=== PATIENT | male | born 1945 | race Hispanic/Latino ===

== ENCOUNTER 2017-06-04 00:48 | Emergency (ER) | payer OTHER ==
[~2017-06-04 00:48] MED LIST: AMLO10TA2 PO; FINA5TAB41 PO; GLIP10TA9 PO; METO-391 PO; VALS320T15 PO
[2017-06-04] MEDS ORDERED: KETOROLAC TROMETHAMINE 30MG/ML ONE (01:19)
[2017-06-04] MEDS ORDERED: DIAZEPAM 5 MG TABLET ONE (01:20)
[2017-06-04] MEDS ORDERED: SODIUM CHLORIDE 0.9% 500ML 500 ML IV ONE (01:20)
[2017-06-04 01:25] LABS: BASOPHILS % (AUTO) 0.8 % (0.0-5.0); EOSINOPHILS % (AUTO) 6.3 % (0.0-8.0); HEMATOCRIT 43.3 % (42-54); LYMPHOCYTES % (AUTO) 11.7 % (21.0-51.0); MEAN CORPUSCULAR HEMOGLOBIN 28.8 pg (27.0-33.0); MEAN CORPUSCULAR HGB CONC 32.6 g/dL (32.0-36.0); MEAN CORPUSCULAR VOLUME 88.2 fL (79-99); NEUTROPHILS % (AUTO) 74.2 % (40.0-77.0); PLATELET COUNT (AUTO) 201 K/uL (130-400); RED BLOOD CELL COUNT(AUTO) 4.91 MIL/uL (4.50-6.20); RED CELL DISTRIBUTION WIDTH 13.8 % (11.0-15.5); WHITE BLOOD COUNT (AUTO) 11.9 K/uL (4.8-10.8)
[2017-06-04 01:36] LABS: CREATININE 1.5 mg/dL (0.5-1.5); INR 0.98 (0.85-1.15); PARTIAL THROMBOPLASTIN TIME 26.4 SEC (26.3-35.5); POTASSIUM 3.4 mmol/L (3.5-5.1); PROTHROMBIN TIME 10.3 SEC (9.6-11.6)
[2017-06-04 01:51] LABS: B-TYPE NATRIURETIC PEPTIDE 118 pg/mL (0-100)
== END 2017-06-04 03:51 | disposition home or self-care (01) ==
LOC: EDH 00:48
DX: J32.0 Chronic maxillary sinusitis (principal); R51 Headache; I10 Essential (primary) hypertension; E11.9 Type 2 diabetes mellitus without complications; Z88.0 Allergy status to penicillin; Z85.46 Personal history of malignant neoplasm of prostate; Z87.891 Personal history of nicotine dependence
CPT/HCPCS: 36415; 70450; 71045; 72125; 80048; 82550; 83880; 84484; 85025; 85610; 85730; 93005; 96374; 99285; J1885; J7040

== ENCOUNTER → 2018-04-17 | Outpatient (CLI) | payer OTHER ==
[~2018-04-17] MED LIST changes: -AMLO10TA2 PO; +AMLO10TA6 PO; -VALS320T15 PO; +VALS320T16 PO
== END | disposition home or self-care (01) ==
LOC: RAH 08:51
PROVIDERS: ATTEND Orthopaedic Surgery
DX: S83.242A Other tear of medial meniscus, current injury, left knee, initial encounter (principal); S83.282A Other tear of lateral meniscus, current injury, left knee, initial encounter; M25.462 Effusion, left knee; X58.XXXA Exposure to other specified factors, initial encounter; Y93.89 Activity, other specified; Y92.89 Other specified places as the place of occurrence of the external cause; Y99.8 Other external cause status
CPT/HCPCS: 73721

== ENCOUNTER 2018-07-14 19:38 | Emergency (ER) | payer OTHER ==
[~2018-07-14 19:38] MED LIST changes: -AMLO10TA6 PO; +AMLO10TA7 PO
[2018-07-14 20:22] LABS: BASOPHILS % (AUTO) 0.7 % (0.0-5.0); EOSINOPHILS % (AUTO) 5.7 % (0.0-8.0); HEMATOCRIT 39.6 % (42-54); LYMPHOCYTES % (AUTO) 11.6 % (21.0-51.0); MEAN CORPUSCULAR HEMOGLOBIN 28.8 pg (27.0-33.0); MEAN CORPUSCULAR VOLUME 87.3 fL (79-99); MONOCYTES % (AUTO) 7.3 % (3.0-13.0); NEUTROPHILS % (AUTO) 74.7 % (40.0-77.0); PLATELET COUNT (AUTO) 173 K/uL (130-400); RED BLOOD CELL COUNT(AUTO) 4.54 MIL/uL (4.50-6.20); RED CELL DISTRIBUTION WIDTH 14.4 % (11.0-15.5); WHITE BLOOD COUNT (AUTO) 11.8 K/uL (4.8-10.8)
[2018-07-14 20:36] LABS: POTASSIUM 3.1 mmol/L (3.5-5.1)
[2018-07-14 20:38] LABS: INR 0.94 (0.85-1.15); PARTIAL THROMBOPLASTIN TIME 26.8 SEC (26.3-35.5); PROTHROMBIN TIME 9.9 SEC (9.6-11.6)
[2018-07-14 20:41] LABS: ALBUMIN 3.3 g/dL (3.5-5.0); BILIRUBIN,TOTAL 0.6 mg/dL (0.2-1.0); CRP QUANTITATIVE 8.9 mg/L (0.00-9.0); TOTAL PROTEIN, SERUM 7.6 g/dL (6.0-8.3)
[2018-07-14 21:25] LABS: ERYTHROCYTE SEDIMENTATION RATE 23 MM/HR (0-20)
[2018-07-14] MEDS ORDERED: CLINDAMYCIN 600 MG/D5% WATER 50 ML IV ONE (21:55)
[2018-07-14] MEDS ORDERED: ONDANSETRON HCL 4 MG/2 ML VIAL ONE (21:55)
[2018-07-14] MEDS ORDERED: MORPHINE SULFATE 4 MG/1ML SYG ONE (21:56)
== END 2018-07-14 22:48 | disposition home or self-care (01) ==
LOC: EDH 19:38
DX: L03.116 Cellulitis of left lower limb (principal); E11.9 Type 2 diabetes mellitus without complications; M79.605 Pain in left leg; I10 Essential (primary) hypertension; Z88.0 Allergy status to penicillin; Z85.46 Personal history of malignant neoplasm of prostate; Z87.891 Personal history of nicotine dependence
CPT/HCPCS: 36415; 80053; 85025; 85610; 85651; 85730; 86140; 87040 ×3; 93005; 93970; 96365; 96375; 99284; J2270; J2405; J3490

== ENCOUNTER 2018-12-17 20:28 | Emergency (ER) | payer OTHER ==
[2018-12-17 21:12] LABS: BASOPHILS % (AUTO) 0.6 % (0.0-5.0); EOSINOPHILS % (AUTO) 6.7 % (0.0-8.0); HEMATOCRIT 40.9 % (42-54); LYMPHOCYTES % (AUTO) 19.1 % (21.0-51.0); MEAN CORPUSCULAR HEMOGLOBIN 29.5 pg (27.0-33.0); MEAN CORPUSCULAR HGB CONC 33.6 g/dL (32.0-36.0); MEAN CORPUSCULAR VOLUME 87.9 fL (79-99); MONOCYTES % (AUTO) 9.1 % (3.0-13.0); NEUTROPHILS % (AUTO) 64.5 % (40.0-77.0); NUCLEATED RED BLOOD CELLS 0.1 % (0.0-0.19); PLATELET COUNT (AUTO) 186 K/uL (130-400); RED BLOOD CELL COUNT(AUTO) 4.66 MIL/uL (4.50-6.20); RED CELL DISTRIBUTION WIDTH 14.9 % (11.0-15.5); WHITE BLOOD COUNT (AUTO) 8.7 K/uL (4.8-10.8)
[2018-12-17 21:24] LABS: CREATININE 1.9 mg/dL (0.5-1.5); POTASSIUM 3.2 mmol/L (3.5-5.1)
[2018-12-17 21:29] LABS: ALBUMIN 3.3 g/dL (3.5-5.0); BILIRUBIN,TOTAL 0.7 mg/dL (0.2-1.0); TOTAL PROTEIN, SERUM 7.3 g/dL (6.0-8.3)
[2018-12-17] MEDS ORDERED: POTASSIUM CHLORIDE 20 MEQ ERTAB PO ONE (22:25)
[2018-12-17] MEDS ORDERED: HYDRALAZINE HCL 20 MG/ML VIAL ONE (22:25)
[2018-12-18] MEDS ORDERED: FUROSEMIDE 10 MG/ML 2ML VIAL ONE ×2 (05:12→05:15)
== END 2018-12-18 05:28 | disposition home or self-care (01) ==
LOC: EDH 20:28
DX: R60.0 Localized edema (principal); T46.1X5A Adverse effect of calcium-channel blockers, initial encounter; R06.00 Dyspnea, unspecified; L40.9 Psoriasis, unspecified; E11.9 Type 2 diabetes mellitus without complications; I10 Essential (primary) hypertension; Z88.0 Allergy status to penicillin; Z87.891 Personal history of nicotine dependence; Y92.89 Other specified places as the place of occurrence of the external cause
CPT/HCPCS: 36415; 71045; 78580; 80053; 83880; 84484; 85025; 85378; 93005; 93970; 96374; 96375; 99285; A9540 ×2; J0360; J1940 ×2

== ENCOUNTER → 2019-02-09 | Outpatient (CLI) | payer OTHER | END | disposition home or self-care (01) | LOC: SHCH 13:12 | PROVIDERS: ATTEND Internal Medicine Cardiovascular Disease | DX: I11.9 Hypertensive heart disease without heart failure (principal); R06.00 Dyspnea, unspecified | CPT/HCPCS: 93306 ==

== ENCOUNTER → 2019-02-15 | Outpatient (CLI) | payer OTHER ==
[~2019-02-15] VITALS: Ht 172.7 cm; Wt 98.0 kg
[~2019-02-15] MED LIST changes: +REGADENOSON 0.4 MG/5 ML PF SYG IVP SCH
== END | disposition home or self-care (01) ==
LOC: SHCH 07:56
PROVIDERS: ATTEND Internal Medicine Cardiovascular Disease
DX: I12.9 Hypertensive chronic kidney disease with stage 1 through stage 4 chronic kidney disease, or unspecified chronic kidney disease (principal); E11.22 Type 2 diabetes mellitus with diabetic chronic kidney disease; N18.9 Chronic kidney disease, unspecified; R06.00 Dyspnea, unspecified; R53.83 Other fatigue; E78.00 Pure hypercholesterolemia, unspecified; Z86.73 Personal history of transient ischemic attack (TIA), and cerebral infarction without residual deficits; Z79.899 Other long term (current) drug therapy; Z82.49 Family history of ischemic heart disease and other diseases of the circulatory system
CPT/HCPCS: 78452; 93017; 96374; A9500 ×2; J2785

== ENCOUNTER 2019-04-30 16:57 | Emergency (ER) | payer OTHER ==
[~2019-04-30 16:57] MED LIST changes: +APRE1TAB2 PO; -REGADENOSON 0.4 MG/5 ML PF SYG IVP SCH
[2019-04-30 17:53] LABS: BASOPHILS % (AUTO) 0.7 % (0.0-5.0); EOSINOPHILS % (AUTO) 6.2 % (0.0-8.0); HEMATOCRIT 38.9 % (42-54); LYMPHOCYTES % (AUTO) 15.3 % (21.0-51.0); MEAN CORPUSCULAR HEMOGLOBIN 28.3 pg (27.0-33.0); MEAN CORPUSCULAR HGB CONC 32.4 g/dL (32.0-36.0); MEAN CORPUSCULAR VOLUME 87.2 fL (79-99); MONOCYTES % (AUTO) 8.6 % (3.0-13.0); NEUTROPHILS % (AUTO) 68.9 % (40.0-77.0); PLATELET COUNT (AUTO) 203 K/uL (130-400); RED BLOOD CELL COUNT(AUTO) 4.46 MIL/uL (4.50-6.20); RED CELL DISTRIBUTION WIDTH 15.7 % (11.0-15.5); WHITE BLOOD COUNT (AUTO) 9.9 K/uL (4.8-10.8)
[2019-04-30] MEDS ORDERED: HYDRALAZINE HCL 20 MG/ML VIAL ONE (18:14)
[2019-04-30 18:16] LABS: CREATININE 1.9 mg/dL (0.5-1.5); POTASSIUM 3.2 mmol/L (3.5-5.1)
[2019-04-30 18:18] LABS: ALBUMIN 3.2 g/dL (3.5-5.0); TOTAL PROTEIN, SERUM 7.8 g/dL (6.0-8.3)
[2019-04-30 18:39] LABS: APPEARANCE,URINE Clear (CLEAR); BILIRUBIN,URINE Negative (NEGATIVE); COLOR,URINE Yellow (YELLOW); GLUCOSE, URINE (UA) Negative (NEGATIVE); KETONES,URINE Negative (NEGATIVE); LEUKOCYTE ESTERASE ,URINE Negative (NEGATIVE); NITRATE,URINE Negative (NEGATIVE); OCCULT BLOOD,URINE Negative (NEGATIVE); PROTEIN,URINE POS 2+ mg/dL (NEGATIVE); UROBILINOGEN,URINE 0.2 mg/dL (0.2-1.0)
[2019-04-30 19:17] LABS: BACTERIA,URINE Rare /HPF (None Seen); RBC,URINE 0-1 /HPF (0-1); SQUAMOUS EPITHELIAL CELL,UR Rare /HPF (0-2); WBC,URINE 0-1 /HPF (0-1)
[2019-04-30] MEDS ORDERED: FUROSEMIDE 10 MG/ML 4ML VIAL ONE (20:00)
== END 2019-04-30 22:56 | disposition home or self-care (01) ==
LOC: EDH 16:57
DX: I12.9 Hypertensive chronic kidney disease with stage 1 through stage 4 chronic kidney disease, or unspecified chronic kidney disease (principal); E11.22 Type 2 diabetes mellitus with diabetic chronic kidney disease; N18.9 Chronic kidney disease, unspecified; L40.9 Psoriasis, unspecified; Z88.0 Allergy status to penicillin
CPT/HCPCS: 36415; 71046; 80053; 81001; 82550; 83880; 84484; 85025; 93005; 96374; 96375; 99285; J0360; J1940

== ENCOUNTER 2019-05-02 14:53 | Observation (INO) | payer OTHER ==
[2019-05-02] MEDS ORDERED: ONDANSETRON HCL 4 MG/2 ML VIAL ONE (15:38)
[2019-05-02] MEDS ORDERED: SODIUM CHLORIDE 0.9% 1000ML 1,000 ML IV ONE (15:38)
[2019-05-02 16:00] LABS: BASOPHILS % (AUTO) 0.3 % (0.0-5.0); CARBON DIOXIDE 25 mmol/L (21-32); CHLORIDE 98 mmol/L (101-111); CREATININE 2.4 mg/dL (0.5-1.5); EOSINOPHILS % (AUTO) 1.1 % (0.0-8.0); GLOMERULAR FILTR. RATE CALC 28 mL/min (>60); GLUCOSE,RANDOM 235 mg/dL (70-105); HEMATOCRIT 40.8 % (42-54); LYMPHOCYTES % (AUTO) 2.7 % (21.0-51.0); MEAN CORPUSCULAR HEMOGLOBIN 27.7 pg (27.0-33.0); MEAN CORPUSCULAR HGB CONC 32.1 g/dL (32.0-36.0); MEAN CORPUSCULAR VOLUME 86.3 fL (79-99); MONOCYTES % (AUTO) 6.2 % (3.0-13.0); NEUTROPHILS % (AUTO) 89.3 % (40.0-77.0); PLATELET COUNT (AUTO) 249 K/uL (130-400); POTASSIUM 3.6 mmol/L (3.5-5.1); RED BLOOD CELL COUNT(AUTO) 4.73 MIL/uL (4.50-6.20); RED CELL DISTRIBUTION WIDTH 15.8 % (11.0-15.5); SODIUM SERUM 136 mmol/L (136-145); UREA NITROGEN, BLOOD 36 mg/dL (7-18); WHITE BLOOD COUNT (AUTO) 16.1 K/uL (4.8-10.8)
[2019-05-02 16:07] LABS: INR 1.05 (0.85-1.15); PARTIAL THROMBOPLASTIN TIME 26.3 SEC (26.3-35.5)
[2019-05-02 16:11] LABS: ALANINE AMINOTRANSFERASE 29 U/L (12-78); ALBUMIN 3.2 g/dL (3.5-5.0); ASPARTATE AMINOTRANSFERASE 33 U/L (10-37); BILIRUBIN,TOTAL 1.4 mg/dL (0.2-1.0); CREATINE KINASE, TOTAL 150 U/L (21-232); MYOGLOBIN 230 ng/mL (10-92); TROPONIN I < 0.04 ng/mL (0.00-0.06)
[2019-05-02 21:42] LABS: APPEARANCE,URINE Turbid (CLEAR); BILIRUBIN,URINE Negative (NEGATIVE); COLOR,URINE Yellow (YELLOW); GLUCOSE, URINE (UA) Negative (NEGATIVE); KETONES,URINE Negative (NEGATIVE); LEUKOCYTE ESTERASE ,URINE Negative (NEGATIVE); NITRATE,URINE Negative (NEGATIVE); OCCULT BLOOD,URINE Negative (NEGATIVE); PROTEIN,URINE POS 2+ mg/dL (NEGATIVE); UROBILINOGEN,URINE 0.2 mg/dL (0.2-1.0)
[2019-05-02 21:59] LABS: BACTERIA,URINE Few /HPF (None Seen); MUCUS,URINE Few LPF (None Seen); SQUAMOUS EPITHELIAL CELL,UR 0-2 /HPF (0-2)
[2019-05-02] MEDS: SODIUM CHLORIDE 0.9% 1000ML 1,000 ML IV SCH (22:27)
[2019-05-02] MEDS: METRONIDAZOLE 500MG/100ML BAG 100 ML IV SCH (22:28)
[2019-05-02] MEDS ORDERED: GLUCAGON 1MG KIT 1 MG ML IM PRN (22:45)
[2019-05-02] MEDS ORDERED: DEXTROSE 50%-WATER 50 ML DISP.SYRIN IV PRN (22:45)
--- NOTE | 2019-05-02 23:55 | NUR ---
Nursing Note Pt has psoriasis over body. Dry, flaking, scaly skin with redness over patches of the body.
[2019-05-03] VITALS: BP 111/56
[2019-05-03] MEDS ORDERED: HUMLIS7525 SQ ×2 (00:32)
[2019-05-03] MEDS ORDERED: HYDR-4153 PO (00:32)
[2019-05-03] MEDS ORDERED: LEVO50 PO (00:32)
[2019-05-03] MEDS ORDERED: OLME1TAB42 PO (00:32)
[2019-05-03] MEDS ORDERED: NIFE60TA81 PO (00:32)
[2019-05-03] MEDS ORDERED: ROSU5TAB12 PO (00:32)
[2019-05-03 04:00] VITALS: BP 113/55
[2019-05-03] MEDS: METRONIDAZOLE 500MG/100ML BAG 100 ML IV SCH ×3 (05:53→21:08)
[2019-05-03] MEDS: INSULIN HUMULIN R 100 UNIT/ML 3ML SQ SCH ×4 (06:55→20:11)
[2019-05-03 07:30] VITALS: BP 136/59
[2019-05-03 11:00] VITALS: BP 156/72
[2019-05-03] MEDS: SODIUM CHLORIDE 0.9% 1000ML 1,000 ML IV SCH (11:20)
[2019-05-03] MEDS ORDERED: NITROGLYCERIN 0.4 MG SL TAB SL PRN (14:45)
[2019-05-03] MEDS ORDERED: POTASSIUM CHLORIDE 20MEQ/100ML 100 ML IV PRN (14:45)
[2019-05-03] MEDS ORDERED: GUAIFENESIN-DM 200/20 MG 10 ML PO PRN (14:45)
[2019-05-03] MEDS ORDERED: LIDOCAINE HCL-MPF 1% 2ML VIAL IV PRN (14:45)
[2019-05-03] MEDS ORDERED: DiphenhydrAMINE HCL 50 MG/ML VIAL IV PRN (14:45)
[2019-05-03] MEDS ORDERED: ACETAMINOPHEN 325 MG TAB PO PRN ×2 (14:45)
[2019-05-03] MEDS ORDERED: POTASSIUM CHLORIDE 10% ELIXIR 20 MEQ/15 ML UDCUP PO PRN (14:45)
[2019-05-03] MEDS ORDERED: ONDANSETRON HCL 4 MG/2 ML VIAL IV PRN (14:45)
[2019-05-03] MEDS ORDERED: HYDRALAZINE HCL 20 MG/ML VIAL IV PRN (14:45)
[2019-05-03 16:00] VITALS: BP 152/80
[2019-05-03] MEDS: INSULIN HUMULIN 70/30 100 UNIT/ML 3ML SQ SCH (17:20)
[2019-05-03] MEDS ORDERED: LOPERAMIDE HCL 2 MG CAP PO PRN ×2 (18:00→18:15)
[2019-05-03 20:00] VITALS: BP 155/78
[2019-05-03] MEDS: METOPROLOL TARTRATE 50 MG TAB PO SCH (20:11)
[2019-05-03] MEDS: NIFEDIPINE ER 30 MG TAB PO SCH (20:11)
[2019-05-03] MEDS: HYDRALAZINE HCL 25 MG TABLET PO SCH (20:11)
[2019-05-03] MEDS: HEPARIN SODIUM 5000UNIT/ML 1ML VIAL SQ SCH (20:11)
[2019-05-03] MEDS ORDERED: ATORVASTATIN CALCIUM 10 MG TABLET PO SCH (21:00)
[2019-05-04] VITALS: BP 130/67
[2019-05-04] MEDS: SODIUM CHLORIDE 0.9% 1000ML 1,000 ML IV SCH ×2 (00:29→13:19)
[2019-05-04 04:00] VITALS: BP 129/66
[2019-05-04 05:10] LABS: BASOPHILS % (AUTO) 0.6 % (0.0-5.0); EOSINOPHILS % (AUTO) 6.4 % (0.0-8.0); HEMATOCRIT 34.4 % (42-54); LYMPHOCYTES % (AUTO) 16.1 % (21.0-51.0); MEAN CORPUSCULAR HEMOGLOBIN 27.8 pg (27.0-33.0); MEAN CORPUSCULAR HGB CONC 31.4 g/dL (32.0-36.0); MEAN CORPUSCULAR VOLUME 88.7 fL (79-99); NEUTROPHILS % (AUTO) 67.5 % (40.0-77.0); PLATELET COUNT (AUTO) 183 K/uL (130-400); RED BLOOD CELL COUNT(AUTO) 3.88 MIL/uL (4.50-6.20); RED CELL DISTRIBUTION WIDTH 15.9 % (11.0-15.5); WHITE BLOOD COUNT (AUTO) 8.3 K/uL (4.8-10.8)
[2019-05-04 05:39] LABS: CREATININE 1.7 mg/dL (0.5-1.5); POTASSIUM 3.4 mmol/L (3.5-5.1)
[2019-05-04] MEDS: METRONIDAZOLE 500MG/100ML BAG 100 ML IV SCH ×2 (06:02→13:18)
[2019-05-04] MEDS: POTASSIUM CHLORIDE 20 MEQ ERTAB PO PRN ×3 (06:02→13:18)
[2019-05-04] MEDS: INSULIN HUMULIN R 100 UNIT/ML 3ML SQ SCH ×2 (06:07→11:30)
[2019-05-04] MEDS ORDERED: LEVOTHYROXINE 50 MCG TABLET PO SCH (06:30)
[2019-05-04 08:19] VITALS: BP 139/71
[2019-05-04] MEDS: METOPROLOL TARTRATE 50 MG TAB PO SCH (08:54)
[2019-05-04] MEDS: NIFEDIPINE ER 30 MG TAB PO SCH (08:54)
[2019-05-04] MEDS: HYDRALAZINE HCL 25 MG TABLET PO SCH ×2 (08:55→13:18)
[2019-05-04] MEDS ORDERED: LOSARTAN 100 MG TABLET PO SCH (09:00)
[2019-05-04] MEDS ORDERED: FAMOTIDINE/PF 20 MG/2 ML VIAL IV SCH (09:00)
[2019-05-04] MEDS ORDERED: FINASTERIDE 5 MG TABLET PO SCH (09:00)
[2019-05-04] MEDS: HEPARIN SODIUM 5000UNIT/ML 1ML VIAL SQ SCH (09:00)
[2019-05-04] MEDS ORDERED: INSULIN HUMULIN 70/30 100 UNIT/ML 3ML SQ SCH (09:00)
[2019-05-04] MEDS ORDERED: HYDROCHLOROTHIAZIDE 25 MG TABLET PO SCH (09:00)
[2019-05-04] MEDS: INSULIN HUMULIN 70/30 100 UNIT/ML 3ML SQ SCH (12:00)
[2019-05-04 12:29] VITALS: BP 126/56
--- NOTE | 2019-05-04 14:51 | NUR ---
BLOOD SUGAR Level was 51mg/dL and was given apple juice X 2 per protocol and ws started on his brat diet. On recheck he is 85mg/dL. Family at bedside. Informed them to call nurse if needed. Verbalized and demonstrated understanding. Patient is A&OX3 in no distress. Had all his BRAT diet lunch.
[2019-05-04] MEDS ORDERED: METR500T PO (15:38)
[2019-05-04 16:03] VITALS: BP 120/65
[2019-05-04] MEDS ORDERED: POTASSIUM CHLORIDE 20 MEQ ERTAB PO SCH (21:00)
== END 2019-05-04 19:45 | disposition home or self-care (01) ==
LOC: EDH 14:53 → EDHIP 16:34 → 3DH 19:04
PROVIDERS: ADMIT Internal Medicine Pulmonary Disease; ATTEND Internal Medicine Pulmonary Disease
DX: K52.9 Noninfective gastroenteritis and colitis, unspecified (principal); E86.9 Volume depletion, unspecified; I12.9 Hypertensive chronic kidney disease with stage 1 through stage 4 chronic kidney disease, or unspecified chronic kidney disease; N18.3 Chronic kidney disease, stage 3 (moderate); E11.22 Type 2 diabetes mellitus with diabetic chronic kidney disease; E87.6 Hypokalemia; I44.0 Atrioventricular block, first degree; I45.10 Unspecified right bundle-branch block; K57.90 Diverticulosis of intestine, part unspecified, without perforation or abscess without bleeding; L40.9 Psoriasis, unspecified; N28.1 Cyst of kidney, acquired; G89.29 Other chronic pain; M54.9 Dorsalgia, unspecified; Z85.46 Personal history of malignant neoplasm of prostate; Z79.4 Long term (current) use of insulin; Z79.899 Other long term (current) drug therapy; Z79.890 Hormone replacement therapy; Z88.0 Allergy status to penicillin
CPT/HCPCS: 36415 ×2; 71045; 74176; 80048; 80053; 81001; 82550; 82948 ×10; 83605; 83874; 84132; 84145; 84484; 85025 ×2; 85610; 85730; 87040; 87088; 87493; 87804 ×2; 93005; 96361; 96365; 96366 ×3; 96372 ×2; 96375; 99284; G0378 ×51; J1644; J1815 ×3; J2405; J3490 ×7; J7030 ×2; 96376

== ENCOUNTER → 2019-06-14 | Outpatient (CLI) | payer OTHER ==
[~2019-06-14] MED LIST changes: -AMLO10TA7 PO; -APRE1TAB2 PO; -GLIP10TA9 PO; +HYDR-4153 PO; +LEVO50 PO; +METR500T PO; +NIFE60TA81 PO; +OLME1TAB84 PO; +ROSU5TAB12 PO; -VALS320T16 PO
== END | disposition home or self-care (01) ==
LOC: SHCH 14:30
PROVIDERS: ATTEND Internal Medicine Cardiovascular Disease
DX: I87.2 Venous insufficiency (chronic) (peripheral) (principal)
CPT/HCPCS: 93970

== ENCOUNTER 2019-06-28 04:25 | Emergency (ER) | payer OTHER ==
[2019-06-28] MEDS ORDERED: ONDANSETRON ODT 4 MG TAB ONE (04:49)
[2019-06-28] MEDS ORDERED: HYDROMORPHONE 1 MG/1 ML AMP ONE (04:50)
[2019-06-28] MEDS ORDERED: KETOROLAC TROMETHAMINE 30MG/ML ONE (05:06)
== END 2019-06-28 06:02 | disposition home or self-care (01) ==
LOC: EDH 04:25
DX: L40.50 Arthropathic psoriasis, unspecified (principal); I10 Essential (primary) hypertension; E11.9 Type 2 diabetes mellitus without complications; Z88.0 Allergy status to penicillin
CPT/HCPCS: 96372 ×2; 99284; J1170; J1885

== ENCOUNTER 2019-07-15 22:23 | Observation (INO) | payer OTHER ==
[~2019-07-15] VITALS: Ht 177.8 cm; Wt 88.9 kg
[2019-07-15] MEDS ORDERED: KETOROLAC TROMETHAMINE 15MG/ML ONE (23:21)
[2019-07-15] MEDS ORDERED: FENTANYL CITRATE PF 50 MCG/1 ML 2ML VIAL ONE (23:21)
[2019-07-15 23:22] LABS: BASOPHILS % (AUTO) 0.3 % (0.0-5.0); EOSINOPHILS % (AUTO) 1.4 % (0.0-8.0); HEMATOCRIT 36.8 % (42-54); LYMPHOCYTES % (AUTO) 12.7 % (21.0-51.0); MEAN CORPUSCULAR HEMOGLOBIN 27.6 pg (27.0-33.0); MEAN CORPUSCULAR HGB CONC 33.4 g/dL (32.0-36.0); MEAN CORPUSCULAR VOLUME 82.7 fL (79-99); MONOCYTES % (AUTO) 9.5 % (3.0-13.0); NEUTROPHILS % (AUTO) 75.7 % (40.0-77.0); PLATELET COUNT (AUTO) 262 K/uL (130-400); RED BLOOD CELL COUNT(AUTO) 4.45 MIL/uL (4.50-6.20); RED CELL DISTRIBUTION WIDTH 14.8 % (11.0-15.5); WHITE BLOOD COUNT (AUTO) 12.5 K/uL (4.8-10.8)
[2019-07-15 23:36] LABS: CREATININE 1.9 mg/dL (0.5-1.5); POTASSIUM 3.1 mmol/L (3.5-5.1)
[2019-07-15 23:41] LABS: ALBUMIN 3.2 g/dL (3.5-5.0); BILIRUBIN,TOTAL 1.2 mg/dL (0.2-1.0); TOTAL PROTEIN, SERUM 8.7 g/dL (6.0-8.3)
[2019-07-16 02:34] LABS: APPEARANCE,URINE Clear (CLEAR); BILIRUBIN,URINE Negative (NEGATIVE); COLOR,URINE Yellow (YELLOW); GLUCOSE, URINE (UA) Negative (NEGATIVE); KETONES,URINE Negative (NEGATIVE); LEUKOCYTE ESTERASE ,URINE Negative (NEGATIVE); NITRATE,URINE Negative (NEGATIVE); OCCULT BLOOD,URINE Negative (NEGATIVE); PROTEIN,URINE POS 1+ mg/dL (NEGATIVE)
[2019-07-16] MEDS ORDERED: GLUCAGON 1MG KIT 1 MG ML IM PRN (04:15)
[2019-07-16] MEDS ORDERED: DEXTROSE 50%-WATER 50 ML DISP.SYRIN IV PRN (04:15)
[2019-07-16] MEDS ORDERED: MORPHINE SULFATE 4 MG/1ML SYG IVP PRN (04:15)
[2019-07-16 05:39] LABS: BASOPHILS % (AUTO) 0.3 % (0.0-5.0); EOSINOPHILS % (AUTO) 0.7 % (0.0-8.0); HEMATOCRIT 28.1 % (42-54); LYMPHOCYTES % (AUTO) 11.9 % (21.0-51.0); MEAN CORPUSCULAR HEMOGLOBIN 27.8 pg (27.0-33.0); MEAN CORPUSCULAR HGB CONC 33.5 g/dL (32.0-36.0); MEAN CORPUSCULAR VOLUME 83.1 fL (79-99); MONOCYTES % (AUTO) 11.2 % (3.0-13.0); NEUTROPHILS % (AUTO) 75.4 % (40.0-77.0); PLATELET COUNT (AUTO) 202 K/uL (130-400); RED BLOOD CELL COUNT(AUTO) 3.38 MIL/uL (4.50-6.20); RED CELL DISTRIBUTION WIDTH 14.8 % (11.0-15.5); WHITE BLOOD COUNT (AUTO) 11.1 K/uL (4.8-10.8)
[2019-07-16 05:50] LABS: CREATININE 1.7 mg/dL (0.5-1.5)
[2019-07-16 05:56] LABS: POTASSIUM 2.8 mmol/L (3.5-5.1)
[2019-07-16] MEDS ORDERED: MORPHINE SULFATE 2 MG/ML 1ML SYG ONE ×2 (06:18→14:08)
[2019-07-16] MEDS: INSULIN R PO SS1 SQ SCH ×4 (07:30→21:37)
[2019-07-16] MEDS: FAMOTIDINE 20MG TAB 20 MG TAB PO SCH ×2 (09:00→21:39)
[2019-07-16] MEDS ORDERED: FAMOTIDINE 20MG TAB 20 MG TAB ONE (09:01)
[2019-07-16] MEDS ORDERED: POTASSIUM CHLORIDE 20 MEQ ERTAB PO ONE ×3 (09:01→14:00)
[2019-07-16] MEDS: PREDNISONE 10 MG TABLET PO SCH (12:30)
[2019-07-16] MEDS ORDERED: LACTULOSE 20 GM/30 ML UDCUP PO PRN (12:30)
[2019-07-16] MEDS ORDERED: MAGNESIUM 2GM PREMIX 50ML 50 ML IV PRN (12:30)
[2019-07-16] MEDS: HYDRALAZINE HCL 25 MG TABLET PO SCH ×2 (14:00→21:38)
[2019-07-16] MEDS ORDERED: HYDRALAZINE HCL 25 MG TABLET ONE (14:00)
[2019-07-16] MEDS ORDERED: PREDNISONE 10 MG TABLET ONE (14:00)
[2019-07-16] MEDS ORDERED: PREDNISONE 20 MG TABLET ONE (14:00)
[2019-07-16 14:45] VITALS: BP 148/72
--- NOTE | 2019-07-16 14:45 | NUR ---
ADMISSION UNDER DR. TOTH . PT AAO X 3 REVIEW . ORDERS FOR ADMISSION . AND CALL LIGHT IN REACH.
[2019-07-16] MEDS ORDERED: HYDR-4153 PO (18:19)
[2019-07-16] MEDS ORDERED: CHLO50TA PO (18:20)
[2019-07-16] MEDS ORDERED: ALLO100T PO (18:20)
[2019-07-16] MEDS ORDERED: METO-391 PO (18:20)
[2019-07-16] MEDS ORDERED: NIFE-39 PO (18:20)
[2019-07-16] MEDS ORDERED: LEVO50 PO (18:20)
[2019-07-16] MEDS ORDERED: ROSU5TAB12 PO (18:20)
[2019-07-16] MEDS ORDERED: FINA5TAB41 PO (18:20)
[2019-07-16] MEDS ORDERED: OLME40TA18 PO (18:20)
[2019-07-16 20:00] VITALS: BP 150/72
[2019-07-16] MEDS: METOPROLOL SUCCINATE 50 MG TAB.SR.24H PO SCH (21:00)
[2019-07-16] MEDS: NIFEDIPINE ER 30 MG TAB PO SCH (21:38)
[2019-07-16 23:32] VITALS: BP 155/87
[2019-07-16] MEDS: MORPHINE SULFATE 2 MG/ML 1ML SYG IVP PRN (23:59)
[2019-07-17 03:55] VITALS: BP 149/79
[2019-07-17 05:38] LABS: HEMATOCRIT 33.9 % (42-54); MEAN CORPUSCULAR HEMOGLOBIN 27.3 pg (27.0-33.0); MEAN CORPUSCULAR HGB CONC 32.7 g/dL (32.0-36.0); MEAN CORPUSCULAR VOLUME 83.3 fL (79-99); PLATELET COUNT (AUTO) 241 K/uL (130-400); RED BLOOD CELL COUNT(AUTO) 4.07 MIL/uL (4.50-6.20); RED CELL DISTRIBUTION WIDTH 14.7 % (11.0-15.5); WHITE BLOOD COUNT (AUTO) 9.8 K/uL (4.8-10.8)
[2019-07-17 06:00] LABS: ALBUMIN 2.6 g/dL (3.5-5.0); BILIRUBIN,DIRECT 0.2 mg/dL (0.0-0.3); BILIRUBIN,TOTAL 0.7 mg/dL (0.2-1.0); CREATININE 1.8 mg/dL (0.5-1.5); MAGNESIUM 2.7 mg/dL (1.80-2.40); PHOSPHORUS 3.9 mg/dL (2.5-4.9); POTASSIUM 3.9 mmol/L (3.5-5.1); TOTAL PROTEIN, SERUM 7.9 g/dL (6.0-8.3)
[2019-07-17] MEDS: INSULIN R PO SS1 SQ SCH ×4 (06:35→21:10)
[2019-07-17 08:00] VITALS: BP 128/75
[2019-07-17] MEDS: HYDROCHLOROTHIAZIDE 25 MG TABLET PO SCH (08:54)
[2019-07-17] MEDS: FAMOTIDINE 20MG TAB 20 MG TAB PO SCH ×2 (08:54→21:16)
[2019-07-17] MEDS: METOPROLOL SUCCINATE 50 MG TAB.SR.24H PO SCH ×2 (08:55→21:19)
[2019-07-17] MEDS: LEVOTHYROXINE 50 MCG TABLET PO SCH (08:55)
[2019-07-17] MEDS: LOSARTAN 100 MG TABLET PO SCH (08:56)
[2019-07-17] MEDS: ATORVASTATIN CALCIUM 10 MG TABLET PO SCH (08:56)
[2019-07-17] MEDS: FINASTERIDE 5 MG TABLET PO SCH (08:56)
[2019-07-17] MEDS: NIFEDIPINE ER 30 MG TAB PO SCH ×2 (08:56→21:20)
[2019-07-17] MEDS: PREDNISONE 10 MG TABLET PO SCH (08:57)
[2019-07-17] MEDS: HYDRALAZINE HCL 25 MG TABLET PO SCH ×3 (08:57→21:20)
[2019-07-17] MEDS ORDERED: BACLOFEN 10 MG TABLET PO PRN (09:45)
[2019-07-17] MEDS: MORPHINE SULFATE 2 MG/ML 1ML SYG IVP PRN (10:58)
[2019-07-17 12:00] VITALS: BP 143/69
--- NOTE | 2019-07-17 14:15 | NUR ---
CM NOTE NEW ORDER FOR SNF. MEET WITH PATIENT IN ROOM. AAOX3, SITTING UP IN CHAIR. PER PATIENT, DOES NOT WANT TO GO TO SNF. SPOKE WITH PATIENT REGARDING ISSUE OF FAMILY NOT ABLE TO CARE FOR PATIENT. PER PATIENT, REASON HE SAID THAT WAS BECAUSE HE DOES NOT WANT TO INCONVENIENCE HIS DAUGHTER AND HER FAMILY. PER PATIENT, HAS MADE ARRANGEMENT TO LIVE WITH HIS RETIRED BROTHER. PATIENT ASKED IF OK TO SPOKE TO NEXT OF KIN REGARDING HIS DECISION TO LIVE WITH HIS BROTHER, PATIENT STATED YES. DAUGHTER CALLED, AND CONFIRMED PATIENTS STORY. PER ANGEL QUINTERO, PATIENT WILL LIVE WITH HIS RETIRED BROTHER WHO IS INDEPENDENT AND ABLE TO ASSIST WITH PATIENT CARE. PATIENT STATES HE ONLY HAS 2 HR OF PROVIDER HR PER DAY AND WOULD LIKE TO OBTAIN MORE. OFFERED TO CALL JONATHAN WITH THE DEPARTMENT OF AGING AND DISABILITY TO SPEAK WITH HIM REGARDING THIS ISSUE. PER PATIENT, WILL LIKE CONTACT THEM HIMSELF. BUSINESS NUMBER FOR DEPARTMENT OF AGING AND DISABILITY GIVEN TO PATIENT. PRIMARY NURSE, RAMIN CERON, MADE AWARE OF PATIENT DECISION. CHRISTINA ROBERTS TO BE MADE AWARE. DISPOSITION TO HOME
[2019-07-17] MEDS ORDERED: COLCHICINE 0.6 MG TABLET PO SCH (15:15)
[2019-07-17] MEDS ORDERED: ALLOPURINOL 100 MG TABLET PO SCH (15:15)
[2019-07-17 16:00] VITALS: BP 156/76
--- NOTE | 2019-07-17 20:06 | NUR ---
SCHEDULED 100MG OF TOPROL XL REJECTED BY PT, STATING HE WANTS ONLY 50MG. OBLIGED.
[2019-07-17 21:25] VITALS: BP 150/72
[2019-07-18 00:50] VITALS: BP 134/66
[2019-07-18 04:17] VITALS: BP 113/60
[2019-07-18 05:26] LABS: BASOPHILS % (AUTO) 0.2 % (0.0-5.0); HEMATOCRIT 30.9 % (42-54); LYMPHOCYTES % (AUTO) 11.1 % (21.0-51.0); MEAN CORPUSCULAR HEMOGLOBIN 27.4 pg (27.0-33.0); MEAN CORPUSCULAR VOLUME 83.1 fL (79-99); MONOCYTES % (AUTO) 8.5 % (3.0-13.0); NEUTROPHILS % (AUTO) 79.7 % (40.0-77.0); PLATELET COUNT (AUTO) 264 K/uL (130-400); RED BLOOD CELL COUNT(AUTO) 3.72 MIL/uL (4.50-6.20); RED CELL DISTRIBUTION WIDTH 14.7 % (11.0-15.5); WHITE BLOOD COUNT (AUTO) 12.9 K/uL (4.8-10.8)
[2019-07-18 05:53] LABS: CREATININE 1.9 mg/dL (0.5-1.5); CRP QUANTITATIVE 110.1 mg/L (0.00-9.0); POTASSIUM 3.2 mmol/L (3.5-5.1)
[2019-07-18 06:24] LABS: ERYTHROCYTE SEDIMENTATION RATE 90 MM/HR (0-20)
[2019-07-18] MEDS: INSULIN R PO SS1 SQ SCH ×3 (06:35→17:54)
[2019-07-18 08:00] VITALS: BP 121/64
[2019-07-18] MEDS ORDERED: POTASSIUM CHLORIDE 20 MEQ ERTAB PO SCH (08:30)
[2019-07-18] MEDS: HYDRALAZINE HCL 25 MG TABLET PO SCH ×2 (09:00→14:00)
[2019-07-18] MEDS ORDERED: INSULIN GLARGINE 100 UNITS/ML 10 ML VIAL SQ SCH (09:00)
[2019-07-18] MEDS ORDERED: ALLOPURINOL 100 MG TABLET PO SCH ×2 (09:00)
[2019-07-18] MEDS ORDERED: COLC0.6C3 PO (09:04)
[2019-07-18] MEDS ORDERED: COLCHICINE 0.6 MG TABLET PO SCH (09:15)
[2019-07-18] MEDS: LOSARTAN 100 MG TABLET PO SCH (11:17)
[2019-07-18] MEDS: METOPROLOL SUCCINATE 50 MG TAB.SR.24H PO SCH (11:17)
[2019-07-18] MEDS: FAMOTIDINE 20MG TAB 20 MG TAB PO SCH (11:17)
[2019-07-18] MEDS: ATORVASTATIN CALCIUM 10 MG TABLET PO SCH (11:17)
[2019-07-18] MEDS: HYDROCHLOROTHIAZIDE 25 MG TABLET PO SCH (11:17)
[2019-07-18] MEDS: FINASTERIDE 5 MG TABLET PO SCH (11:18)
[2019-07-18] MEDS: LEVOTHYROXINE 50 MCG TABLET PO SCH (11:18)
[2019-07-18] MEDS: NIFEDIPINE ER 30 MG TAB PO SCH (11:18)
[2019-07-18] MEDS: PREDNISONE 10 MG TABLET PO SCH (11:18)
[2019-07-18] MEDS: MORPHINE SULFATE 2 MG/ML 1ML SYG IVP PRN (11:41)
[2019-07-18 12:00] VITALS: BP 134/63
[2019-07-18] MEDS ORDERED: POTASSIUM CHLORIDE 10MEQ/100ML 100 ML IV ONE (13:52)
[2019-07-18] MEDS: POTASSIUM CHLORIDE 10MEQ/100ML 10 MEQ/100 ML ML IV SCH ×3 (13:58→16:22)
[2019-07-18] MEDS ORDERED: SODIUM CHLORIDE 0.9% 500ML 500 ML IV ONE (15:05)
[2019-07-18 16:00] VITALS: BP 134/69
[2019-07-18] MEDS ORDERED: PRED20TA3 PO (16:56)
== END 2019-07-18 19:15 | disposition home or self-care (01) ==
LOC: EDH 22:23 → EDHIP 07-16 03:06 → 3BH 07-16 14:37
PROVIDERS: ADMIT Internal Medicine Critical Care Medicine; ATTEND Internal Medicine Critical Care Medicine
DX: M1A.9XX0 Chronic gout, unspecified, without tophus (tophi) (principal); C61 Malignant neoplasm of prostate; E11.22 Type 2 diabetes mellitus with diabetic chronic kidney disease; I12.9 Hypertensive chronic kidney disease with stage 1 through stage 4 chronic kidney disease, or unspecified chronic kidney disease; N18.9 Chronic kidney disease, unspecified; L40.9 Psoriasis, unspecified; K57.90 Diverticulosis of intestine, part unspecified, without perforation or abscess without bleeding; N28.1 Cyst of kidney, acquired; Z88.0 Allergy status to penicillin
CPT/HCPCS: 36415 ×4; 71045; 72125; 73020; 73070; 73100; 80048 ×3; 80053; 80076; 81003; 82550; 82948 ×9; 83735; 84100; 84132 ×2; 84484; 84550; 85025 ×3; 85027; 85651; 86140; 93005; 96372 ×4; 96374; 96376 ×2; 97039; 97116 ×2; 97161; 99285; G0378 ×22; G8978; G8979; G8980; G8981; G8982; G8983; J1815 ×9; J1885; J3010; J7040; J7512 ×3

== ENCOUNTER → 2019-11-12 | Outpatient (CLI) | payer OTHER ==
[~2019-11-12] MED LIST changes: +ALLO100T PO; +CHLO50TA PO; +COLC0.6C3 PO; -METR500T PO; +NIFE-39 PO; -NIFE60TA81 PO; -OLME1TAB84 PO; +OLME40TA18 PO; +PRED20TA3 PO
== END | disposition home or self-care (01) ==
LOC: OIH 09:24
PROVIDERS: ATTEND Internal Medicine
DX: M19.042 Primary osteoarthritis, left hand (principal); M19.041 Primary osteoarthritis, right hand; M19.072 Primary osteoarthritis, left ankle and foot; M19.071 Primary osteoarthritis, right ankle and foot
CPT/HCPCS: 73620

== ENCOUNTER → 2020-01-21 | Outpatient (CLI) | payer OTHER | END | disposition home or self-care (01) | LOC: RAH 09:23 | PROVIDERS: ATTEND Internal Medicine Cardiovascular Disease | DX: Z13.6 Encounter for screening for cardiovascular disorders (principal) | CPT/HCPCS: 75571 ==

== ENCOUNTER → 2020-02-06 | Outpatient (CLI) | payer OTHER ==
[~2020-02-06] MED LIST changes: +ALBUTEROL SULFATE 0.083% 2.5 MG/3 ML INH IH ONE
== END | disposition home or self-care (01) ==
LOC: RESP 10:18
PROVIDERS: ATTEND Internal Medicine Cardiovascular Disease
DX: J44.9 Chronic obstructive pulmonary disease, unspecified (principal)
CPT/HCPCS: 94060; 94727; 94729

== ENCOUNTER 2020-06-20 14:46 | Emergency (ER) | payer OTHER ==
[~2020-06-20 14:46] MED LIST changes: -ALBUTEROL SULFATE 0.083% 2.5 MG/3 ML INH IH ONE
[2020-06-20 15:40] LABS: BASOPHILS % (AUTO) 0.4 % (0.0-5.0); EOSINOPHILS % (AUTO) 0.5 % (0.0-8.0); LYMPHOCYTES % (AUTO) 9.5 % (21.0-51.0); MEAN CORPUSCULAR HEMOGLOBIN 29.8 pg (27.0-33.0); MEAN CORPUSCULAR HGB CONC 34.5 g/dL (32.0-36.0); MEAN CORPUSCULAR VOLUME 86.4 fL (79-99); MONOCYTES % (AUTO) 6.7 % (3.0-13.0); NEUTROPHILS % (AUTO) 82.6 % (40.0-77.0); PLATELET COUNT (AUTO) 149 K/uL (130-400); RED CELL DISTRIBUTION WIDTH 13.3 % (11.0-15.5); WHITE BLOOD COUNT (AUTO) 10.9 K/uL (4.8-10.8)
[2020-06-20] MEDS ORDERED: SODIUM CHLORIDE 0.9% 1000ML 1,000 ML IV ONE (15:48)
[2020-06-20 15:54] LABS: CREATININE 2.2 mg/dL (0.5-1.5); POTASSIUM 3.2 mmol/L (3.5-5.1)
[2020-06-20 15:58] LABS: ALBUMIN 3.5 g/dL (3.5-5.0); BILIRUBIN,TOTAL 1.4 mg/dL (0.2-1.0); TOTAL PROTEIN, SERUM 7.3 g/dL (6.0-8.3)
[2020-06-20 16:12] LABS: RAPID GROUP A STREP NEGATIVE (NEGATIVE)
== END 2020-06-20 17:49 | disposition home or self-care (01) ==
LOC: EDH 14:46
DX: J02.9 Acute pharyngitis, unspecified (principal); Z20.822 Contact with and (suspected) exposure to COVID-19; E11.9 Type 2 diabetes mellitus without complications; I10 Essential (primary) hypertension; Z87.891 Personal history of nicotine dependence; Z88.0 Allergy status to penicillin
CPT/HCPCS: 36415; 71045; 80053; 84484; 85025; 87426; 87804 ×2; 87880; 93005; 96360; 96361; 99285; J7030; U0003

== ENCOUNTER 2020-09-26 15:27 | Emergency (ER) | payer OTHER ==
[2020-09-26 15:48] LABS: BASOPHILS % (AUTO) 0.7 % (0.0-5.0); HEMATOCRIT 37.9 % (42-54); LYMPHOCYTES % (AUTO) 17.6 % (21.0-51.0); MEAN CORPUSCULAR HEMOGLOBIN 30.7 pg (27.0-33.0); MEAN CORPUSCULAR HGB CONC 34.8 g/dL (32.0-36.0); MEAN CORPUSCULAR VOLUME 88.1 fL (79-99); MONOCYTES % (AUTO) 7.5 % (3.0-13.0); NEUTROPHILS % (AUTO) 69.5 % (40.0-77.0); PLATELET COUNT (AUTO) 219 K/uL (130-400); WHITE BLOOD COUNT (AUTO) 12.8 K/uL (4.8-10.8)
[2020-09-26] MEDS ORDERED: PROCHLORPERAZINE EDISYLATE 10 MG/2 ML VIAL ONE (15:55)
[2020-09-26] MEDS ORDERED: DiphenhydrAMINE HCL 50 MG/ML VIAL ONE (15:55)
[2020-09-26] MEDS ORDERED: FAMOTIDINE/PF 20 MG/2 ML VIAL IV ONE (15:56)
[2020-09-26] MEDS ORDERED: SODIUM CHLORIDE 0.9% 1000ML 1,000 ML IV ONE (15:57)
[2020-09-26 16:02] LABS: INR 1.08 (0.85-1.15); PROTHROMBIN TIME 11.7 SEC (9.6-11.6)
[2020-09-26 16:03] LABS: PARTIAL THROMBOPLASTIN TIME 28.1 SEC (26.3-35.5)
[2020-09-26 16:10] LABS: CREATININE 2.1 mg/dL (0.5-1.5)
[2020-09-26 16:18] LABS: ALBUMIN 3.7 g/dL (3.5-5.0); BILIRUBIN,TOTAL 1.1 mg/dL (0.2-1.0); TOTAL PROTEIN, SERUM 7.5 g/dL (6.0-8.3)
[2020-09-26 17:25] LABS: APPEARANCE,URINE Clear (CLEAR); BILIRUBIN,URINE Negative (NEGATIVE); COLOR,URINE Yellow (YELLOW); GLUCOSE, URINE (UA) Negative (NEGATIVE); KETONES,URINE Trace mg/dL (NEGATIVE); LEUKOCYTE ESTERASE ,URINE Negative (NEGATIVE); NITRATE,URINE Negative (NEGATIVE); OCCULT BLOOD,URINE Negative (NEGATIVE); PROTEIN,URINE Negative (NEGATIVE); UROBILINOGEN,URINE 0.2 mg/dL (0.2-1.0)
[2020-09-26] MEDS ORDERED: SODIUM CHLORIDE 0.9% 500ML 500 ML IV ONE (18:50)
== END 2020-09-26 19:10 | disposition home or self-care (01) ==
LOC: EDH 15:27
DX: K29.00 Acute gastritis without bleeding (principal); E86.0 Dehydration; J32.9 Chronic sinusitis, unspecified; I12.9 Hypertensive chronic kidney disease with stage 1 through stage 4 chronic kidney disease, or unspecified chronic kidney disease; E11.22 Type 2 diabetes mellitus with diabetic chronic kidney disease; N18.30 Chronic kidney disease, stage 3 unspecified; M10.9 Gout, unspecified; Z87.891 Personal history of nicotine dependence; Z88.0 Allergy status to penicillin
CPT/HCPCS: 36415; 71045; 80053; 81003; 82150; 82550; 83605; 83690; 84484; 85025; 85610; 85730; 93005; 96361; 96374; 96375; 99285; J0780; J1200; J3490; J7030; J7040

== ENCOUNTER 2020-10-15 10:25 | Day surgery (SDC) | payer OTHER ==
[~2020-10-15] VITALS: Ht 172.7 cm; Wt 75.5 kg
[2020-10-15] VITALS (11 sets, daily range): BP systolic 133–159; BP diastolic 67–78
[~2020-10-15 10:25] MED LIST changes: -CHLO50TA PO; -COLC0.6C3 PO; +METO10TA41 PO; +METR500T PO; +ONDA8TAB12 PO; -PRED20TA3 PO
[2020-10-15 11:40] LABS: EOSINOPHILS % (AUTO) 6.8 % (0.0-8.0); HEMATOCRIT 40.2 % (42-54); LYMPHOCYTES % (AUTO) 17.8 % (21.0-51.0); MEAN CORPUSCULAR HEMOGLOBIN 31.6 pg (27.0-33.0); MEAN CORPUSCULAR HGB CONC 33.3 g/dL (32.0-36.0); MEAN CORPUSCULAR VOLUME 94.8 fL (79-99); MONOCYTES % (AUTO) 8.9 % (3.0-13.0); NEUTROPHILS % (AUTO) 65.1 % (40.0-77.0); PLATELET COUNT (AUTO) 230 K/uL (130-400); RED BLOOD CELL COUNT(AUTO) 4.24 MIL/uL (4.50-6.20); RED CELL DISTRIBUTION WIDTH 14.4 % (11.0-15.5); WHITE BLOOD COUNT (AUTO) 8.1 K/uL (4.8-10.8)
[2020-10-15 11:42] LABS: POTASSIUM 4.1 mmol/L (3.5-5.1)
[2020-10-15 11:45] LABS: ALBUMIN 3.6 g/dL (3.5-5.0); BILIRUBIN,TOTAL 1.3 mg/dL (0.2-1.0); TOTAL PROTEIN, SERUM 7.3 g/dL (6.0-8.3)
[2020-10-15] MEDS ORDERED: LIPA1CAP8 PO (11:58)
[2020-10-15] MEDS ORDERED: CHLO50TA PO (11:58)
[2020-10-15] MEDS ORDERED: PRED5TAB PO (11:58)
[2020-10-15] MEDS ORDERED: METO-391 PO (11:58)
[2020-10-15] MEDS ORDERED: ONDA8TAB12 PO (12:05)
[2020-10-15] MEDS ORDERED: INSU100I15 SQ ×2 (12:19)
[2020-10-15] MEDS ORDERED: LIDOCAINE PF 2% 5ML ABBOJECT ONE (15:33)
[2020-10-15] MEDS ORDERED: PROPOFOL 10 MG/ML 20ML VIAL IV ONE (15:34)
[2020-10-15] MEDS ORDERED: ONDANSETRON HCL 4 MG/2 ML VIAL ONE ×2 (15:34→18:01)
[2020-10-15] MEDS ORDERED: ROCURONIUM 10MG/1ML SYR 10 MG/ML ML ONE (15:34)
[2020-10-15] MEDS ORDERED: CLINDAMYCIN 900 MG/D5% WATER 50 ML IV ONE (15:49)
[2020-10-15] MEDS ORDERED: INDOCYANINE GREEN 25 MG VIAL IJ ONE (15:50)
[2020-10-15] MEDS ORDERED: BUPIVACAINE/PF 0.25% 30ML VIAL IJ ONE (15:53)
[2020-10-15] MEDS ORDERED: SUCCINYLCHOLINE 200MG/10ML SYR ONE (16:32)
[2020-10-15] MEDS ORDERED: EPHEDRINE SULFATE 50 MG/ML AMPULE ONE (16:32)
[2020-10-15] MEDS ORDERED: FENTANYL CITRATE PF 50 MCG/1 ML 5ML AMP IV ONE (16:32)
[2020-10-15] MEDS ORDERED: GLYCOPYRROLATE 1 MG/5 ML SYRINGE ONE (17:09)
[2020-10-15] MEDS ORDERED: NEOSTIGMINE 5MG/5ML SYR IV ONE (17:10)
[2020-10-15] MEDS ORDERED: MEPERIDINE-PF 25 MG/ML SYG ONE (18:01)
== END 2020-10-15 19:27 | disposition home or self-care (01) ==
LOC: DAH 10:25
PROVIDERS: ATTEND Student in an Organized Health Care Education/Training Program
DX: K82.8 Other specified diseases of gallbladder (principal); K80.12 Calculus of gallbladder with acute and chronic cholecystitis without obstruction; Z20.822 Contact with and (suspected) exposure to COVID-19; I10 Essential (primary) hypertension; K21.9 Gastro-esophageal reflux disease without esophagitis; Z83.3 Family history of diabetes mellitus; Z82.49 Family history of ischemic heart disease and other diseases of the circulatory system; Z87.891 Personal history of nicotine dependence; Z88.0 Allergy status to penicillin; Z79.899 Other long term (current) drug therapy
CPT/HCPCS: 36415; 47562; 80053; 82948 ×2; 85025; 87426; 93005; A4215; A4221; A4222; A4223; A4600; A4649 ×3; A4663; C1769 ×2; G0168; J0330; J2001; J2175; J2405 ×2; J2704; J2710; J3010; J3490 ×4; J7030

== ENCOUNTER 2020-10-24 15:22 | Observation (INO) | payer OTHER ==
[~2020-10-24] VITALS: Ht 182.9 cm; Wt 72.6 kg
[~2020-10-24 15:22] MED LIST changes: +CHLO50TA PO; +INSU100I15 SQ; +LIPA1CAP8 PO; -METO10TA41 PO; -METR500T PO; -OLME40TA18 PO; +PRED5TAB PO
[2020-10-24] MEDS ORDERED: ONDANSETRON HCL 4 MG/2 ML VIAL IVP ONE (15:45)
[2020-10-24] MEDS ORDERED: LACTATED RINGERS 1000ML 1,000 ML IV ONE (15:45)
[2020-10-24 16:12] LABS: EOSINOPHILS % (AUTO) 5.4 % (0.0-8.0); HEMATOCRIT 35.8 % (42-54); LYMPHOCYTES % (AUTO) 15.4 % (21.0-51.0); MEAN CORPUSCULAR HEMOGLOBIN 30.6 pg (27.0-33.0); MONOCYTES % (AUTO) 10.3 % (3.0-13.0); NEUTROPHILS % (AUTO) 67.2 % (40.0-77.0); PLATELET COUNT (AUTO) 222 K/uL (130-400); RED BLOOD CELL COUNT(AUTO) 3.85 MIL/uL (4.50-6.20); RED CELL DISTRIBUTION WIDTH 13.4 % (11.0-15.5); WHITE BLOOD COUNT (AUTO) 7.3 K/uL (4.8-10.8)
[2020-10-24 16:29] LABS: CREATININE 1.6 mg/dL (0.5-1.5); POTASSIUM 3.9 mmol/L (3.5-5.1)
[2020-10-24 16:31] LABS: ALBUMIN 2.7 g/dL (3.5-5.0); BILIRUBIN,TOTAL 0.7 mg/dL (0.2-1.0); TOTAL PROTEIN, SERUM 6.5 g/dL (6.0-8.3)
[2020-10-24] MEDS ORDERED: ONDANSETRON HCL 4 MG/2 ML VIAL ONE (17:45)
[2020-10-24 19:34] LABS: APPEARANCE,URINE Clear (CLEAR); BILIRUBIN,URINE Negative (NEGATIVE); COLOR,URINE Yellow (YELLOW); GLUCOSE, URINE (UA) Negative (NEGATIVE); KETONES,URINE Trace mg/dL (NEGATIVE); LEUKOCYTE ESTERASE ,URINE Negative (NEGATIVE); NITRATE,URINE Negative (NEGATIVE); OCCULT BLOOD,URINE Negative (NEGATIVE); PH,URINE 6.5 (5.0-8.0); PROTEIN,URINE Negative (NEGATIVE); UROBILINOGEN,URINE 0.2 mg/dL (0.2-1.0)
[2020-10-24 19:48] VITALS: BP 182/90
[2020-10-24] MEDS ORDERED: DEXTROSE 50%-WATER 50 ML DISP.SYRIN IV PRN (20:00)
[2020-10-24] MEDS ORDERED: PROMETHAZINE HCL 25 MG/ML 1ML AMPULE IM PRN (20:00)
[2020-10-24] MEDS ORDERED: GLUCAGON 1MG KIT 1 MG ML IM PRN (20:00)
[2020-10-24] MEDS ORDERED: LABETALOL 20 MG/4 ML DISP.SYRIN IV PRN (20:00)
[2020-10-24] MEDS ORDERED: ACETAMINOPHEN 325 MG TAB ONE (20:26)
[2020-10-24] MEDS ORDERED: HYDROMORPHONE 0.5 MG SYG (0.5MG/0.5ML) IV PRN (20:30)
[2020-10-24] MEDS: FAMOTIDINE/PF 20 MG/2 ML VIAL IV SCH (21:07)
[2020-10-24] MEDS: SODIUM CHLORIDE 0.9% 1000ML 1,000 ML IV SCH (21:07)
[2020-10-24 23:52] VITALS: BP 148/89
[2020-10-25] MEDS ORDERED: PROMETHAZINE HCL 25 MG/ML 1ML AMPULE IM SCH (04:45)
[2020-10-25] MEDS: SODIUM CHLORIDE 0.9% 1000ML 1,000 ML IV SCH ×2 (06:00→21:57)
[2020-10-25] MEDS: INSULIN HUMULIN R 100 UNIT/ML 3ML SQ SCH ×4 (06:00→18:00)
[2020-10-25 06:58] VITALS: BP 157/87
[2020-10-25 08:00] VITALS: BP 138/78
[2020-10-25 08:19] LABS: BASOPHILS % (AUTO) 0.7 % (0.0-5.0); EOSINOPHILS % (AUTO) 6.4 % (0.0-8.0); HEMATOCRIT 33.8 % (42-54); MEAN CORPUSCULAR HEMOGLOBIN 30.1 pg (27.0-33.0); MEAN CORPUSCULAR HGB CONC 32.5 g/dL (32.0-36.0); MEAN CORPUSCULAR VOLUME 92.3 fL (79-99); MONOCYTES % (AUTO) 10.2 % (3.0-13.0); NEUTROPHILS % (AUTO) 65.4 % (40.0-77.0); PLATELET COUNT (AUTO) 215 K/uL (130-400); RED BLOOD CELL COUNT(AUTO) 3.66 MIL/uL (4.50-6.20); RED CELL DISTRIBUTION WIDTH 13.4 % (11.0-15.5); WHITE BLOOD COUNT (AUTO) 6.8 K/uL (4.8-10.8)
[2020-10-25 08:44] LABS: ALBUMIN 2.5 g/dL (3.5-5.0); BILIRUBIN,TOTAL 0.7 mg/dL (0.2-1.0); CREATININE 1.5 mg/dL (0.5-1.5); POTASSIUM 3.8 mmol/L (3.5-5.1); TOTAL PROTEIN, SERUM 5.9 g/dL (6.0-8.3)
[2020-10-25] MEDS ORDERED: METOCLOPRAMIDE 10 MG/2 ML VIAL IVP SCH (17:00)
[2020-10-25 21:30] VITALS: BP 170/86
[2020-10-25] MEDS: FAMOTIDINE/PF 20 MG/2 ML VIAL IV SCH (21:58)
[2020-10-26 00:34] VITALS: BP 181/76
[2020-10-26] MEDS ORDERED: HYDRALAZINE HCL 20 MG/ML VIAL IV PRN (01:15)
[2020-10-26] MEDS ORDERED: PROMETHAZINE HCL 25 MG/ML 1ML AMPULE IM PRN (01:15)
[2020-10-26] MEDS: SODIUM CHLORIDE 0.9% 1000ML 1,000 ML IV SCH (02:00)
[2020-10-26 02:09] VITALS: BP 168/88
[2020-10-26 03:43] VITALS: BP 157/69
[2020-10-26 05:20] VITALS: BP 143/71
[2020-10-26 05:20] LABS: HEMATOCRIT 34.8 % (42-54); MEAN CORPUSCULAR HEMOGLOBIN 31.2 pg (27.0-33.0); MEAN CORPUSCULAR HGB CONC 33.6 g/dL (32.0-36.0); MEAN CORPUSCULAR VOLUME 92.8 fL (79-99); RED BLOOD CELL COUNT(AUTO) 3.75 MIL/uL (4.50-6.20); RED CELL DISTRIBUTION WIDTH 13.3 % (11.0-15.5)
[2020-10-26 05:26] LABS: HEMOGLOBIN A1C 6.7 % (4.0-6.0)
[2020-10-26 05:32] LABS: INR 1.1 (0.85-1.15); PROTHROMBIN TIME 11.9 SEC (9.6-11.6)
[2020-10-26 05:33] LABS: PARTIAL THROMBOPLASTIN TIME 28.2 SEC (26.3-35.5)
[2020-10-26 05:40] LABS: ALBUMIN 2.6 g/dL (3.5-5.0); BILIRUBIN,DIRECT 0.2 mg/dL (0.0-0.3); BILIRUBIN,TOTAL 0.8 mg/dL (0.2-1.0); CREATININE 1.4 mg/dL (0.5-1.5); POTASSIUM 3.2 mmol/L (3.5-5.1); TOTAL PROTEIN, SERUM 6.1 g/dL (6.0-8.3)
[2020-10-26] MEDS: INSULIN HUMULIN R 100 UNIT/ML 3ML SQ SCH ×2 (06:00)
[2020-10-26 07:35] VITALS: BP 127/69
[2020-10-26] MEDS ORDERED: METO10TA41 PO (09:13)
[2020-10-26 10:43] VITALS: BP 132/72
== END 2020-10-26 10:30 | disposition home or self-care (01) ==
LOC: EDH 15:22 → EDHIP 19:17 → 3DH 10-26 09:16 → EDHIP 10-26 09:36
PROVIDERS: ADMIT Internal Medicine Pulmonary Disease; ATTEND Internal Medicine Pulmonary Disease
DX: E11.43 Type 2 diabetes mellitus with diabetic autonomic (poly)neuropathy (principal); K31.84 Gastroparesis; N17.9 Acute kidney failure, unspecified; I12.9 Hypertensive chronic kidney disease with stage 1 through stage 4 chronic kidney disease, or unspecified chronic kidney disease; E11.22 Type 2 diabetes mellitus with diabetic chronic kidney disease; N18.31 Chronic kidney disease, stage 3a; N40.0 Benign prostatic hyperplasia without lower urinary tract symptoms; N28.1 Cyst of kidney, acquired; R63.4 Abnormal weight loss; Z86.19 Personal history of other infectious and parasitic diseases; R74.01 Elevation of levels of liver transaminase levels; L40.9 Psoriasis, unspecified; M1A.9XX0 Chronic gout, unspecified, without tophus (tophi); Z85.46 Personal history of malignant neoplasm of prostate; Z90.49 Acquired absence of other specified parts of digestive tract; Z79.899 Other long term (current) drug therapy; Z79.4 Long term (current) use of insulin; Z88.0 Allergy status to penicillin; Z88.8 Allergy status to other drugs, medicaments and biological substances; Z68.21 Body mass index [BMI] 21.0-21.9, adult
CPT/HCPCS: 36415 ×3; 74176; 76705; 80048; 80053 ×2; 80061; 80076; 81003; 82948 ×5; 83036; 83605; 83690 ×3; 84145; 84484; 85025 ×2; 85027; 85610; 85730; 93005; 96361 ×3; 96372 ×2; 96374; 96375 ×3; 96376 ×2; 99285; G0378 ×39; J0360; J2405; J2550 ×2; J2765; J3490 ×2

== ENCOUNTER 2022-08-13 13:59 | Emergency (ER) | payer OTHER ==
[~2022-08-13] VITALS: Ht 172.7 cm; Wt 81.6 kg
[~2022-08-13 13:59] MED LIST changes: +METO10TA41 PO
[2022-08-13 14:27] LABS: EOSINOPHILS % (AUTO) 11.3 % (0.0-8.0); HEMATOCRIT 37.4 % (42-54); LYMPHOCYTES % (AUTO) 15.1 % (21.0-51.0); MEAN CORPUSCULAR HEMOGLOBIN 29.6 pg (27.0-33.0); MEAN CORPUSCULAR HGB CONC 33.7 g/dL (32.0-36.0); MEAN CORPUSCULAR VOLUME 87.8 fL (79-99); NEUTROPHILS % (AUTO) 64.3 % (40.0-77.0); PLATELET COUNT (AUTO) 197 K/uL (130-400); RED BLOOD CELL COUNT(AUTO) 4.26 MIL/uL (4.50-6.20); RED CELL DISTRIBUTION WIDTH 14.3 % (11.0-15.5); WHITE BLOOD COUNT (AUTO) 9.8 K/uL (4.8-10.8)
[2022-08-13] MEDS ORDERED: IPRATROPIUM/ALBUTEROL SULFATE 3 ML SOLUTION IH ONE (15:30)
[2022-08-13] MEDS ORDERED: POTASSIUM BICARB/CIT AC 25 MEQ TABLET.EFF PO ONE (15:30)
[2022-08-13] MEDS ORDERED: SOLU-MEDROL 125MG VIAL IVP ONE (15:30)
[2022-08-13 15:49] LABS: APPEARANCE,URINE CLEAR (CLEAR); BILIRUBIN,URINE NEGATIVE (NEGATIVE); COLOR,URINE LIGHT-YELLOW (YELLOW); GLUCOSE, URINE (UA) 50 mg/dL (NEGATIVE); KETONES,URINE NEGATIVE (NEGATIVE); LEUKOCYTE ESTERASE ,URINE NEGATIVE Leu/uL (NEGATIVE); NITRATE,URINE NEGATIVE (NEGATIVE); OCCULT BLOOD,URINE NEGATIVE (NEGATIVE); PH,URINE 6.5 (5.0-8.0); PROTEIN,URINE 300 mg/dL (NEGATIVE); UROBILINOGEN,URINE 0.2 mg/dL (0.2-1.0)
[2022-08-13 16:02] LABS: MUCUS,URINE RARE LPF (None Seen); SQUAMOUS EPITHELIAL CELL,UR RARE /HPF (0-2)
[2022-08-13 16:33] VITALS: BP 134/68
[2022-08-13] MEDS ORDERED: DOXY100C5 PO (16:38)
[2022-08-13] MEDS ORDERED: POTA-192 PO (16:41)
[2022-08-13] MEDS ORDERED: ALBU6.7H14 IH (16:41)
[2022-08-13] MEDS ORDERED: GUAIFENESIN-CODEINE 5 ML SYRUP PO ONE (17:00)
== END 2022-08-13 16:54 | disposition home or self-care (01) ==
LOC: EDH 13:59
DX: J06.9 Acute upper respiratory infection, unspecified (principal); E23.2 Diabetes insipidus; E11.36 Type 2 diabetes mellitus with diabetic cataract; I10 Essential (primary) hypertension; E78.00 Pure hypercholesterolemia, unspecified; J43.9 Emphysema, unspecified; Z79.899 Other long term (current) drug therapy; Z85.46 Personal history of malignant neoplasm of prostate; Z90.49 Acquired absence of other specified parts of digestive tract; Z88.0 Allergy status to penicillin; Z88.8 Allergy status to other drugs, medicaments and biological substances; Z98.890 Other specified postprocedural states
CPT/HCPCS: 99285; 96374; 71045; 83735; 84484; 80053; 83880; 85025; 81001; 36415; 93005; 94640; J2930

== ENCOUNTER → 2023-03-17 | Outpatient (CLI) | payer OTHER ==
[~2023-03-17] MED LIST changes: +ALBU6.7H14 IH; +DOXY100C5 PO; +POTA-192 PO
== END | disposition home or self-care (01) ==
LOC: SHCH 10:40
PROVIDERS: ATTEND Internal Medicine Cardiovascular Disease
DX: I10 Essential (primary) hypertension (principal)
CPT/HCPCS: 93975

== ENCOUNTER → 2023-04-04 | Outpatient (CLI) | payer OTHER | END | disposition home or self-care (01) | LOC: RAH 08:31 | PROVIDERS: ATTEND Internal Medicine Cardiovascular Disease | DX: Z13.6 Encounter for screening for cardiovascular disorders (principal) | CPT/HCPCS: 75571 ==

== ENCOUNTER 2023-06-07 11:06 | Emergency (ER) | payer OTHER ==
[~2023-06-07] VITALS: Ht 172.7 cm; Wt 72.6 kg
[~2023-06-07 11:06] MED LIST changes: -CHLO50TA PO; +CLON0.1T PO; +DOCU100T PO; -DOXY100C5 PO; +FURO40TA7 PO; -HYDR-4153 PO; +HYDR-4154 PO; -INSU100I15 SQ; -LEVO50 PO; +LEVO75CA5 PO; -LIPA1CAP8 PO; +LOSA50TA64 PO; -METO10TA41 PO; -NIFE-39 PO; +NIFE-40 PO; -ONDA8TAB12 PO; +OXYB5TAB20 PO; -POTA-192 PO; -PRED5TAB PO; +TAMS-1 PO
[2023-06-07] MEDS ORDERED: HYDRALAZINE 20MG/ML VIAL IV ONE (12:30)
[2023-06-07 12:38] LABS: BASOPHILS # (AUTO) 0.07 K/uL (0.00-0.20); BASOPHILS % (AUTO) 0.8 % (0.0-5.0); EOSINOPHILS # (AUTO) 1.15 K/uL (0.00-0.70); HEMATOCRIT 34.3 % (42-54); IMMATURE GRANULOCYTE ABSOLUTE 0.04 K/uL (0-1); LYMPHOCYTES # (AUTO) 1.3 K/uL (1.0-4.8); LYMPHOCYTES % (AUTO) 14.1 % (21.0-51.0); MEAN CORPUSCULAR HEMOGLOBIN 30.2 pg (27.0-33.0); MEAN CORPUSCULAR HGB CONC 33.2 g/dL (32.0-36.0); MONOCYTES # (AUTO) 0.9 K/uL (0.1-1.0); MONOCYTES % (AUTO) 10.1 % (3.0-13.0); NEUTROPHILS # (AUTO) 5.5 K/uL (1.8-7.7); NEUTROPHILS % (AUTO) 61.5 % (40.0-77.0); PLATELET COUNT (AUTO) 201 K/uL (130-400); RED BLOOD CELL COUNT(AUTO) 3.77 MIL/uL (4.50-6.20); RED CELL DISTRIBUTION WIDTH 13.9 % (11.0-15.5); WHITE BLOOD COUNT (AUTO) 8.9 K/uL (4.8-10.8)
[2023-06-07 12:53] LABS: CARBON DIOXIDE 33 mmol/L (21-32); CHLORIDE 96 mmol/L (101-111); CREATININE 2.6 mg/dL (0.5-1.5); GLOMERULAR FILTR. RATE CALC 25 mL/min (>90); GLUCOSE,RANDOM 164 mg/dL (70-105); POTASSIUM 3.2 mmol/L (3.5-5.1); SODIUM SERUM 135 mmol/L (136-145); UREA NITROGEN, BLOOD 25 mg/dL (7-18)
[2023-06-07 12:58] LABS: ALANINE AMINOTRANSFERASE 23 U/L (12-78); ALBUMIN 3.1 g/dL (3.5-5.0); ASPARTATE AMINOTRANSFERASE 36 U/L (10-37); BILIRUBIN,TOTAL 1.4 mg/dL (0.2-1.0); TOTAL PROTEIN, SERUM 7.7 g/dL (6.0-8.3)
[2023-06-07 13:13] LABS: B-TYPE NATRIURETIC PEPTIDE 186 pg/mL (0-100)
[2023-06-07] MEDS ORDERED: HYDRALAZINE 20MG/ML VIAL IM ONE (14:00)
[2023-06-07] MEDS ORDERED: FUROSEMIDE 40 MG TABLET PO ONE (14:30)
[2023-06-07] MEDS ORDERED: KCL 20 MEQ ERTAB PO ONE (14:30)
[2023-06-07 14:42] LABS: APPEARANCE,URINE CLEAR (CLEAR); BILIRUBIN,URINE NEGATIVE (NEGATIVE); GLUCOSE, URINE (UA) NEGATIVE (NEGATIVE); KETONES,URINE NEGATIVE (NEGATIVE); LEUKOCYTE ESTERASE ,URINE NEGATIVE Leu/uL (NEGATIVE); NITRATE,URINE NEGATIVE (NEGATIVE); OCCULT BLOOD,URINE NEGATIVE (NEGATIVE); PROTEIN,URINE 100 mg/dL (NEGATIVE); UROBILINOGEN,URINE 0.2 mg/dL (0.2-1.0)
[2023-06-07 14:44] LABS: ADD UA MICROSCOPIC YES; COLOR,URINE LIGHT-YELLOW (YELLOW)
[2023-06-07 14:46] LABS: RBC,URINE 0-1 /HPF (0-1); WBC,URINE 0-1 /HPF (0-1)
[2023-06-07 14:56] VITALS: BP 166/65; PULSE 55; RESP 16; O2SAT 98
[2023-06-07] MEDS ORDERED: METO-409 PO (15:06)
== END 2023-06-07 16:09 | disposition home or self-care (01) ==
LOC: EDH 11:06
DX: E87.6 Hypokalemia (principal); I11.0 Hypertensive heart disease with heart failure; I50.9 Heart failure, unspecified; E78.00 Pure hypercholesterolemia, unspecified; Z79.52 Long term (current) use of systemic steroids; Z79.890 Hormone replacement therapy; Z79.899 Other long term (current) drug therapy; Z85.46 Personal history of malignant neoplasm of prostate; Z88.0 Allergy status to penicillin; Z90.49 Acquired absence of other specified parts of digestive tract
CPT/HCPCS: 99285; 96374; 83735; 84484; 80053; 83880; 85025; 81001; 36415; 96372; 93005; J0360 ×2

== ENCOUNTER → 2023-07-04 | Outpatient (CLI) | payer OTHER ==
[~2023-07-04] MED LIST changes: -HYDR-4154 PO; +HYDR50TA37 PO; +METO-409 PO
== END | disposition home or self-care (01) ==
LOC: RAH 09:27
PROVIDERS: ATTEND Internal Medicine Gastroenterology
DX: R63.4 Abnormal weight loss (principal); I51.7 Cardiomegaly; I70.0 Atherosclerosis of aorta; M47.815 Spondylosis without myelopathy or radiculopathy, thoracolumbar region
CPT/HCPCS: 71046

== ENCOUNTER 2024-06-05 12:13 | Emergency (ER) | payer OTHER ==
[~2024-06-05] VITALS: Ht 172.7 cm; Wt 74.8 kg
[~2024-06-05 12:13] MED LIST changes: -ROSU5TAB12 PO; +ROSU5TAB51 PO
--- NOTE | 2024-06-05 13:56 | HMCIMG ---
SHOULDER COMP 2+VWS LT REASON: FALL TECHNIQUE: 3 views were obtained. FINDINGS: There is no evidence of fracture or dislocation. There is no joint effusion. The soft tissues appear unremarkable. There is no evidence of a radiopaque foreign body. IMPRESSION: No acute findings.
--- NOTE | 2024-06-05 13:56 | HMCIMG ---
RIBS UNILAT 2V LT REASON: FALL TECHNIQUE: 5 views were obtained. FINDINGS: There is no evidence of fracture or dislocation. Underlying lung is clear.. The soft tissues appear unremarkable. There is no evidence of a radiopaque foreign body. IMPRESSION: No acute findings.
[2024-06-05] MEDS ORDERED: SULF1TAB42 PO (15:11)
--- NOTE | 2024-06-05 15:11 | ERN ---
General Chief Complaint: Mechanical Fall Stated Complaint: MECHANICAL FALL Time Seen by MD: 12:55 Time Seen by Midlevel: 12:55 Source: patient History of Present Illness Initial Comments Patient is a 79-year-old male presenting to the emergency department following a mechanical ground level fall that occurred yesterday. Patient states he accidentally tripped over his left toe and landed on his left shoulder. Denies any head injury or loss of consciousness. Denies on any blood thinners. Patient was able to the get up on his own. He specifically denies any headache, vision changes, blurred vision, or any other symptoms at this time. Allergies: Coded Allergies: meropenem (Unverified Allergy, Intermediate, 10/04/20) Penicillins (Verified Allergy, Unknown, 10/01/20) Home Meds Active Scripts Sulfamethoxazole/Trimethoprim (Bactrim Ds Tablet) 800 Mg-160 Mg Tablet, 1 TAB PO BID for 7 Days, #14 TAB 0 Refills Prov:JEANNE TOWNSEND PA 06/05/24 Metoprolol Succinate (Metoprolol Succinate) 100 Mg Tab.er.24h, 100 MG PO DAILY, #30 TAB Prov:JIM SANTOS FROZEN FOOD DEPARTMENT MANAGER 06/07/23 Docusate Sodium (Docusate Sodium) 100 Mg Tablet, 100 MG PO DAILY, #30 TAB 0 Refills Prov:LINO MINOR TRAIN PLANNER 06/04/23 Losartan Potassium (Losartan Potassium) 50 Mg Tablet, 50 MG PO DAILY, #30 TAB 0 Refills Prov:LINO MINOR TRAIN PLANNER 06/04/23 Furosemide (Lasix 40Mg Tab) 40 Mg Tablet, 40 MG PO DAILY, #30 TAB 0 Refills Prov:LINO MINOR TRAIN PLANNER 06/04/23 Nifedipine (Nifedipine ER) 30 Mg Tab.er.24, 30 MG PO DAILY, #30 TAB 0 Refills Prov:LINO MINOR TRAIN PLANNER 06/04/23 Albuterol Sulfate (Proventil Hfa) 6.7 Gm Hfa.aer.ad, 6.7 GM IH BID PRN for cough for 7 Days, #15 INHALER Prov:NICOLE BELL MD 08/13/22 Reported Medications Allopurinol (Allopurinol) 100 Mg Tablet, 100 MG PO DAILY, TAB 06/03/23 Finasteride (Finasteride) 5 Mg Tablet, 5 MG PO DAILY, TAB 06/03/23 Rosuvastatin Calcium (Rosuvastatin Calcium) 5 Mg Tablet, 5 MG PO DAILY, TAB 06/03/23 Tamsulosin HCl (Flomax) 0.4 Mg Cap.er.24h, 0.4 MG PO HS, CAPSULE.DR 06/03/23 Oxybutynin Chloride (Oxybutynin Chloride) 5 Mg Tablet, 5 MG PO HS, TAB 06/03/23 Hydralazine HCl (Hydralazine HCl) 50 Mg Tablet, 50 MG PO TID, TAB 06/03/23 Levothyroxine Sodium (Levothyroxine) 75 Mcg Capsule, 75 MCG PO DAILY, CAP 06/03/23 Metoprolol Succinate (Metoprolol Succinate) 50 Mg Tab.er.24h, 50 MG PO DAILY, TAB 06/03/23 Clonidine HCl (Clonidine HCl) 0.1 Mg Tablet, 0.1 MG PO Q6HPRN PRN for IF SBP GREATER THAN 160, TAB 06/03/23 Past Medical History Past Medical History: COPD, Diabetes-Type II, Prostatitis, Renal Disese Medical History Other: PROSTATE CA, EMPHYSEMA, RENAL FAILURE ST 3 Past Surgical History: Cholecystectomy Surgical History Other: CATARACT Family History Family History: Negative Social History Social History: Negative, Lives with family ROS Dictation CONSTITUTIONAL: Negative except for HPI HEAD/FACE: Negative except for HPI EENT: Negative except for HPI RESPIRATORY: Negative except for HPI GASTROINTESTINAL/ABDOMINAL: Negative except for HPI GENITOURINARY: Negative except for HPI MUSCULOSKELETAL: Negative except for HPI INTEGUMENTARY: Negative except for HPI NEUROLOGICAL/PSYCH: Negative except for HPI HEMATOLOGIC/LYMPHATIC: Negative except for HPI All Systems Negative, Except as noted above. 13 point review of systems assessed and all negative except for above. Physical Exam Physical Exam Dictation Vital Signs reviewed General Appearance: Alert, oriented x 3, no acute distress, well developed, nourished. Head and Face: non-traumatic. Eyes: PERRL, pink conjunctivas, eyelid no trauma, anterior chamber with arcus senilis. Ears: Pinnas intact and no signs of trauma or erythema ear canals clear and no discharge TM no erythema Nose: No discharge, no bleeding. Oropharynx: Mouth normal, tongue pink, pharynx clear,no erythema, tonsils no exudates, no abscesses noted, mucous membrane moist Neck: Supple, non-tender, no thyromegaly, no masses, no JVD, no bruits Breast:Deferred Chest:No tenderness, no crepitus, no paradoxical movement, no retractions Lungs:Clear, well-ventilated, symmetric, no rales, no wheezing, no rhonchi, no stridor, good breath sounds bilaterally Heart: Regular rate, regular rhythm, no murmur, no gallops Vascular: no peripheral edema, Abdomen: Soft, positive bowel sounds, nondistended, no guarding, nontender, no rebound, no masses no hepatomegaly, no splenomegaly, no Durbin's sign, no hernias. Rectal: Deferred Genital: Deferred Neurological: Normal speech, motor function intact, sensory function intact Musculoskeletal: Neck nontender, full range of motion, back nontender, full range of motion, Extremities: nontender, full range of motion Skin: Color pink, dry, no turgor, no rash, no lacerations, no abrasions, there is a contusion to the left great toe Lymphatic: Deferred MDM MDM: Patient is a 79-year-old male presenting to the emergency department following a mechanical ground level fall that occurred yesterday. Patient states he accidentally tripped over his left toe and landed on his left shoulder. Denies any head injury or loss of consciousness. Denies on any blood thinners. Patient was able to the get up on his own. He specifically denies any headache, vision changes, blurred vision, or any other symptoms at this time. On physical examination patient is in no acute distress. His initial vital signs are stable. Patient is nontoxic appearing. Neurological examination is unremarkable. Patient with a GCS of 15. Patient is alert and oriented x4. he does report some mild shoulder pain however he has full range motion with no point tenderness. Breath sounds are equal to auscultation bila terally. There is a avulsion like lesion to his left great toe. There is some mild swelling with moderate amount of tenderness. An x-ray of the left there was obtained which does not show any acute fracture or dislocation. Chest wall and shoulder x-rays do not show any acute injury. The patient was given a tetanus vaccination in the ER. The erosion injury was thoroughly cleansed with wound cleanser and sterile gauze was applied. I have prescribed oral antibiotics to prevent a secondary infection given his history of type 2 diabetes. Patient was advised to follow up with the PCP in 2-3 days for repeat evaluation. No need for advanced imaging as patient did not hit his head and he was not complaining of any neurological symptoms. His neurological examination is unremarkable at this time. Differential diagnosis: Fracture, dislocation, contusion There are no social concerns with this patient. Prescription drug management Prescriptions will include: Keflex Medical management and examination interpretation discussions were had by me with other qualified healthcare professionals as indicated for the patient's care. ED Course Orders Procedure Category Date Status Time Ribs Unilat 2v Lt RAD 06/05/24 Resulted 12:38 Shoulder Comp 2+Vws Lt RAD 06/05/24 Resulted 12:38 Toe(S) 2+Vws Lt RAD 06/05/24 Resulted 12:38 Tetanus,Diphtheria PHA 06/05/24 Complete Tox [Adult] (Diphther 13:00 *Nursing CPOE 06/05/24 Transmitted Communication: 15:03 Hydrocodone/Apap PHA 06/05/24 Complete 10/325 Tab (Wisner 10) 15:30 Current Medications Medications (Trade) Dose Ordered Sig/Sacha Route PRN Reason Start Time Stop Time Status Last Admin Dose Admin Acetaminophen/ Hydrocodone Bitart (NORco 10) 1 tab ONCE ONCE PO 06/05/24 15:30 06/05/24 15:31 DC 06/05/24 15:42 Tetanus/ Diphtheria Toxoids Adsorbed (DiphthERIA-teTANUS TOXOID [ADULT]/ DECAVAC) 0.5 ml ONCE ONCE IM 06/05/24 13:00 06/05/24 13:01 DC 06/05/24 15:45 Vital Signs Date Time Temp Pulse Resp B/P (MAP) Pulse Ox O2 Delivery O2 Flow Rate FiO2 06/05/24 15:57 97.5 77 20 141/66 99 Room Air* 0 21 06/05/24 12:41 97.9 63 20 131/79 99 Room Air 0 [facility] [address] [address] IMAGING REPORT Signed PATIENT: ABHILASH RAE MR#: [id number] : 1945 SEX: M AGE: 79 LOCATION: [facility] ORDER 1240 STATUS: REG ER [facility] REPORT#: [id number] SERVICE 37 REASON: FALL ORDERING PHYSICIAN: RENEE MULLEN MD PROCEDURE: TOES LT - TOE(S) 2+VWS LT TOE(S) 2+VWS LT REASON: FALL TECHNIQUE: 3 views were obtained. FINDINGS: There is no evidence of fracture or dislocation. There is no joint effusion. The soft tissues appear unremarkable. There is no evidence of a radiopaque foreign body. IMPRESSION: No acute findings. DICTATED BY: JAELYN COOPER MD DATE: 06/05/241353 ELECTRONICALLY SIGNED BY: JAELYN COOPER MD DATE: 06/05/241356 [place] [id number] [place] [address] IMAGING REPORT Signed PATIENT: ABHILASH RAE MR#: [id number] : 1945 SEX: M AGE: 79 LOCATION: [facility] ORDER 39 STATUS: REG [facility] REPORT#: [id number] SERVICE 37 REASON: FALL ORDERING PHYSICIAN: RENEE MULLEN MD PROCEDURE: SHOL 2V LT - SHOULDER COMP 2+VWS LT SHOULDER COMP 2+VWS LT REASON: FALL TECHNIQUE: 3 views were obtained. FINDINGS: There is no evidence of fracture or dislocation. There is no joint effusion. The soft tissues appear unremarkable. There is no evidence of a radiopaque foreign body. IMPRESSION: No acute findings. DICTATED BY: JAELYN COOPER MD DATE: 06/05/241353 ELECTRONICALLY SIGNED BY: JAELYN COOPER MD DATE: 06/05/241355 [facility] [address] [place] [address] IMAGING REPORT Signed PATIENT: ABHILASH RAE MR#: [id number] : 1945 SEX: M AGE: 79 LOCATION: [facility] ORDER STATUS: REG ER REPORT#: [id number] SERVICE 1238 REASON: FALL ORDERING PHYSICIAN: RENEE MULLEN MD PROCEDURE: RIB UNI LT - RIBS UNILAT 2V LT RIBS UNILAT 2V LT REASON: FALL TECHNIQUE: 5 views were obtained. FINDINGS: There is no evidence of fracture or dislocation. Underlying lung is clear.. The soft tissues appear unremarkable. There is no evidence of a radiopaque foreign body. IMPRESSION: No acute findings. DICTATED BY: JAELYN COOPER MD DATE: 06/05/24 135 ELECTRONICALLY SIGNED BY: JAELYN COOPER MD DATE: 06/05/24 1356 DX & DISP Disposition: Discharge Departure Impression: Primary Impression: Contusion of toe of left foot Additional Impression: Shoulder contusion Condition: Stable Scripts Sulfamethoxazole/Trimethoprim (Bactrim Ds Tablet) 800 Mg-160 Mg Tablet 1 TAB PO BID for 7 Days, #14 TAB 0 Refills Prov: JEANNE TOWNSEND 06/05/24 Additional Instructions: Your x-ray of the left shoulder, chest wall, and left toe do not show any acute fracture. I have given you a prescription for oral antibiotics to prevent an infection given your history of type 2 diabetes. Please follow up with your primary care doctor in 2-3 days for repeat evaluation. Return to the ER for any new or worsening symptoms Referrals: SELF,REFERRAL (PCP) I have reviewed the case, and I agree with, Diagnosis and Plan I performed the substantive portion of the visit. I have reviewed and personally made and approve the management plan that is documented in the note by myself or the JESSICA. I acknowledge for responsibility for the patient's manag ement plan. JEANNE TOWNSEND Jun 05, 2024 15:11
--- NOTE | 2024-06-05 15:13 | NUR ---
ASSUMED CARE AT THIS TIME
[2024-06-05] MEDS: HYDROcodone/acetaMINOPHEN 10/325 MG TAB PO ONE (15:42)
[2024-06-05] MEDS: teTANUS/diphthERIA TOXOID [ADULT] 0.5 ML VIAL IM ONE (15:45)
--- NOTE | 2024-06-05 15:52 | NUR ---
WOUND CARE TO LT GREAT TOE WITH NS AND DRESSED WITH NON ADHERENT DRESSING, PT TOLERATED WELL.
[2024-06-05 15:57] VITALS: BP 141/66; PULSE 77; RESP 20; TEMP 97.5; O2SAT 99
== END 2024-06-05 15:57 | disposition home or self-care (01) ==
LOC: EDH 12:13
DX: S90.122A Contusion of left lesser toe(s) without damage to nail, initial encounter (principal); S40.012A Contusion of left shoulder, initial encounter; E11.9 Type 2 diabetes mellitus without complications; J43.9 Emphysema, unspecified; Z79.890 Hormone replacement therapy; Z79.899 Other long term (current) drug therapy; Z88.0 Allergy status to penicillin; Z90.49 Acquired absence of other specified parts of digestive tract; W01.0XXA Fall on same level from slipping, tripping and stumbling without subsequent striking against object, initial encounter; Y93.89 Activity, other specified; Y92.89 Other specified places as the place of occurrence of the external cause; Y99.8 Other external cause status
CPT/HCPCS: 71100; 73030; 73660; 90471; 90714; 99284; 99291

== ENCOUNTER 2024-07-04 13:27 | Emergency (ER) | payer OTHER ==
[~2024-07-04] VITALS: Ht 172.7 cm; Wt 73.5 kg
[~2024-07-04 13:27] MED LIST changes: +SULF1TAB42 PO
[2024-07-04] MEDS: Solu-medROL 125MG VIAL IVP ONE (14:12)
[2024-07-04] MEDS: DiphenhydrAMINE HCL 50 MG/ML VIAL IV STA (14:12)
[2024-07-04] MEDS ORDERED: METH4TAB3 PO (15:55)
[2024-07-04] MEDS ORDERED: DIPH50 PO (15:55)
[2024-07-04] MEDS ORDERED: ZINC113C10 TP (15:56)
--- NOTE | 2024-07-04 15:57 | ERN ---
ED Note History of Present Illness Stated Complaint: ALLERGIC REACTION Chief Complaint: Allergic Reaction Time Seen by MD: 13:29 Time Seen by Midlevel: 13:33 Dictation: 79-YEAR-OLD MALE COMING IN FOR GENERALIZED BODY RASH THAT HAS BEEN GOING ON FOR TWO WEEKS. PATIENT STATES HE WAS SEEN HERE TWO WEEKS AGO FOR A TOE INJURY WAS PLACED ON BACTRIM FOR INFECTION AND STATES HAS HAD THE RASH SINCE THEN. WENT TODAY TO HIS ENGINE MANAGER AND WAS SENT HERE FOR EVALUATION. PATIENT HAS A HISTORY OF RA, DIABETES, CHOLESTEROL AND CKD. Allergies: Coded Allergies: meropenem (Unverified Allergy, Intermediate, 10/04/20) Penicillins (Verified Allergy, Unknown, 10/01/20) Home Meds Active Scripts Sulfamethoxazole/Trimethoprim (Bactrim Ds Tablet) 800 Mg-160 Mg Tablet, 1 TAB PO BID for 7 Days, #14 TAB 0 Refills Prov:JEANNE TOWNSEND PA 06/05/24 Metoprolol Succinate (Metoprolol Succinate) 100 Mg Tab.er.24h, 100 MG PO DAILY, #30 TAB Prov:JIM SANTOS IT APPLICATIONS ANALYST 06/07/23 Docusate Sodium (Docusate Sodium) 100 Mg Tablet, 100 MG PO DAILY, #30 TAB 0 Refills Prov:LINO MINOR SECTION REPAIRER 06/04/23 Losartan Potassium (Losartan Potassium) 50 Mg Tablet, 50 MG PO DAILY, #30 TAB 0 Refills Prov:LINO MINOR SECTION REPAIRER 06/04/23 Furosemide (Lasix 40Mg Tab) 40 Mg Tablet, 40 MG PO DAILY, #30 TAB 0 Refills Prov:LION MINOR SECTION REPAIRER 06/04/23 Nifedipine (Nifedipine ER) 30 Mg Tab.er.24, 30 MG PO DAILY, #30 TAB 0 Refills Prov:LINO MINOR SECTION REPAIRER 06/04/23 Albuterol Sulfate (Proventil Hfa) 6.7 Gm Hfa.aer.ad, 6.7 GM IH BID PRN for cough for 7 Days, #15 INHALER Prov:NICOLE BELL MD 08/13/22 Reported Medications Allopurinol (Allopurinol) 100 Mg Tablet, 100 MG PO DAILY, TAB 06/03/23 Finasteride (Finasteride) 5 Mg Tablet, 5 MG PO DAILY, TAB 06/03/23 Rosuvastatin Calcium (Rosuvastatin Calcium) 5 Mg Tablet, 5 MG PO DAILY, TAB 06/03/23 Tamsulosin HCl (Flomax) 0.4 Mg Cap.er.24h, 0.4 MG PO HS, CAPSULE.DR 06/03/23 Oxybutynin Chloride (Oxybutynin Chloride) 5 Mg Tablet, 5 MG PO HS, TAB 06/03/23 Hydralazine HCl (Hydralazine HCl) 50 Mg Tablet, 50 MG PO TID, TAB 06/03/23 Levothyroxine Sodium (Levothyroxine) 75 Mcg Capsule, 75 MCG PO DAILY, CAP 06/03/23 Metoprolol Succinate (Metoprolol Succinate) 50 Mg Tab.er.24h, 50 MG PO DAILY, TAB 06/03/23 Clonidine HCl (Clonidine HCl) 0.1 Mg Tablet, 0.1 MG PO Q6HPRN PRN for IF SBP GREATER THAN 160, TAB 06/03/23 Past Medical History Past Medical History: COPD, Diabetes-Type II, Prostatitis, Renal Disese Additional Past Medical Hx: PROSTATE CA, EMPHYSEMA, RENAL FAILURE ST 3 Surgical History: Cholecystectomy Surgical History Other: CATARACT Family History: Negative Social History: Negative, Lives with family Review of System Dictation CONSTITUTIONAL: NEGATIVE FOR FEVER,CHILLS, AND WEIGHT LOSS EYES: NEGATIVE FOR INJURY, PAIN,REDNESS, AND DISCHARGE ENT: NEGATIVE FOR INJURY,PAIN OR SWELLING CARDIOVASCULAR: NEGATIVE FOR CHEST PAIN, PALPITATIONS, AND EDEMA RESPIRATORY: NEGATIVE FOR SHORTNESS OF BREATH, COUGH, AND WHEEZING, ABDOMEN/GI: NEGATIVE FOR ABDOMINAL PAIN, NAUSEA, VOMITING, DIARRHEA, AND CON STIPATION BACK: NEGATIVE FOR INJURY AND PAIN : NEGATIVE FOR INJURY, BLEEDING AND DISCHARGE MS/EXTREMITY: NEGATIVE FOR INJURY AND DEFORMITY SKIN: POSITIVE FOR RASH NEURO: NEGATIVE FOR HEADACHE, WEAKNESS, NUMBNESS, TINGLING, AND SEIZURE PSYCH: NEGATIVE FOR SUICIDE IDEATION, HOMICIDAL IDEATION, AND HALLUCINATIONS Review of Systems: was completed Initial Vital Sign VS Vital Signs Date Time Temp Pulse Resp B/P (MAP) Pulse Ox O2 Delivery O2 Flow Rate FiO2 07/04/24 13:28 97.5 65 20 164/74 99 Room Air 07/04/24 13:46 0 21 Physical Exam Dictation GENERAL: AWAKE, ALERT, NAD HEAD/FACE: NORMOCEPHALIC, ATRAUMATIC EYES: PERRL, EOMI, VISION AT BASELINE ENT: ORAL CAVITY CLEAR, TMS CLEAR, NO SIGNS OF INFECTION NECK: TRACHEA MIDLINE, SUPPLE, NO NUCHAL RIGIDITY CARDIOVASCULAR: RRR, NORMAL S1/S2, NO MRGS, NO JVD RESPIRATORY: CTAB, NO RESPIRATORY DISTRESS, NO RALES OR WHEEZES ABDOMEN: SOFT, NON-TENDER, NON-DISTENDED, NORMAL BOWEL SOUNDS, NO GUARDING OR REBOUND. SKIN: GENERALIZED RASH TO BILATERAL ARMS, ABDOMEN, AND BACK AND BUTTOCKS, WITH ITCHING. NO BLISTERING, NO PAIN, NO SHEDDING OF SKIN. MS/EXTREMITY: PULSES EQUAL, NO CYANOSIS, NEUROVASCULAR INTACT, FROM NEURO: COAX4, GCS 15, STRENGTH 5/5, CN 2-12 INTACT, NORMAL CEREBELLAR EXAM, NORMAL GAIT, PSYCH: NORMAL BEHAVIOR, MOOD, AND AFFECT NORMAL ED Course ED Course Orders Procedure Category Date Status Time Methylprednisolone PHA 07/04/24 Complete Succ 125mg (Solu-Medr 14:00 Diphenhydramine Hcl PHA 07/04/24 Complete (Benadryl Inj) 13:39 Current Medications Medications (Trade) Dose Ordered Sig/Sacha Route PRN Reason Start Time Stop Time Status Last Admin Dose Admin Diphenhydramine HCl (BENAdryl INJ) 25 mg ONCE STAT IV 07/04/24 13:39 07/04/24 13:40 DC 07/04/24 14:12 Methylprednisolone Sodium Succinate (Solu-medROL 125MG) 125 mg ONCE ONCE IVP 07/04/24 14:00 07/04/24 14:01 DC 07/04/24 14:12 Vital Signs Date Time Temp Pulse Resp B/P (MAP) Pulse Ox O2 Delivery O2 Flow Rate FiO2 07/04/24 13:46 98.8 55 18 164/74 97 Room Air* 0 21 07/04/24 13:28 97.5 65 20 164/74 99 Room Air Medical Decision Making MDM MDM: 79-YEAR-OLD MALE COMING IN FOR GENERALIZED BODY RASH THAT HAS BEEN GOING ON FOR TWO WEEKS. PATIENT STATES HE WAS SEEN HERE TWO WEEKS AGO FOR A TOE INJURY WAS PLACED ON BACTRIM FOR INFECTION AND STATES HAS HAD THE RASH SINCE THEN. WENT TODAY TO HIS ENGINE MANAGER AND WAS SENT HERE FOR EVALUATION. PATIENT HAS A HISTORY OF RA, DIABETES, CHOLESTEROL AND CKD. AFTER SOLU-MEDROL AND BENADRYL PATIENT FEELS MUCH BETTER. REDNESS FROM RASH HAS DECREASED, AND ITCHING RESOLVED. DIFFERENTIAL DIAGNOSIS: ESTHER JAREK SYNDROME, ALLERGIC REACTION, MEDICATION REACTION, HIVES RATIONALE: TESTS CONSIDERED AND ORDERED SECONDARY TO SHARED DECISION MAKING INCLUDE: PREVIOUS OUTSIDE RECORDS REVIEWED: OLD ER VISITS. RISK OF COMPLICATION AND/OR MORBIDITY OR MORTALITY OF PATIENT MANAGEMENT: NONE MEDICATIONS-PER MEDICATION RECONCILIATION NEED FOR HOSPITALIZATION: PATIENT DOES NOT MEET CRITERIA FOR HOSPITALIZATION. NEED FOR EMERGENCY MAJOR/MINOR SURGERY: NO THERE ARE NO SOCIAL CONCERNS WITH THIS PATIENT. PRESCRIPTION DRUG MANAGEMENT PRESCRIPTIONS WILL INCLUDE SYMPTOMATIC CARE PATIENT'S PRIOR EXTERNAL MEDICAL RECORDS FROM OTHER ER VISITS WERE REVIEWED BY ME INDICATED. PRIOR TESTING AND RESULTS FROM PREVIOUS VISITS WERE REVIEWED. PRIOR TESTS WERE TAKEN INTO ACCOUNT WITH MEDICAL DECISION MAKING AND RESOURCE UTILIZATION, INDEPENDENT HISTORIAN/HISTORIANS WERE USED TO OBTAIN COMPLETE MEDICAL HISTORY. I INDEPENDENTLY INTERPRETED THE TEST THAT WERE PERFORMED, RESULTS WERE REVIEWED BY ME AND CONSIDERED FINDINGS ON RADIOLOGY IF ORDERED. MEDICAL MANAGEMENT AND EXAMINATION INTERPRETATION DISCUSSIONS WERE HAD BY ME WITH OTHER QUALIFIED HEALTHCARE PROFESSIONALS INDICATED FOR THE PATIENT'S CARE. DX & DISP Disposition: Discharge Departure Impression: Primary Impression: Allergic reaction Condition: Stable Scripts Zinc Oxide (Diaper Rash) 13 % Cream..g. 1 APPL TP BID for 30 Days, #113 GM 0 Refills Prov: BRANDON OSPINA IT APPLICATIONS ANALYST 07/04/24 Diphenhydramine HCl (Benadryl) 50 Mg Cap 50 MG PO Q6H for itching/rash for 5 Days, #20 CAP 0 Refills Prov: BRANDON OSPINA IT APPLICATIONS ANALYST 07/04/24 Methylprednisolone (Medrol) 4 Mg Tab.ds.pk 1 TAB PO AD for 6 Days, #21 TAB 0 Refills 6 on day 1 then reduce by one tablet daily until gone Prov: BRANDON OSPINA IT APPLICATIONS ANALYST 07/04/24 Additional Instructions: PLEASE TAKE MEDICATIONS PRESCRIBED. STOP TAKING THE BACTRIM. USE A ZINC OXIDE FOR YOUR DIAPER RASH, AVOID APPLYING TISSUE PAPER TO AVOID ANY INFECTION. PLEASE FOLLOW UP WITH YOUR PCP AND OR WITH THE ENGINE MANAGER AND RETURN TO THE ER NEEDED. Referrals: PER [place]T DO (PCP) Time of Disposition: 15:56 I have reviewed the case, and I agree with, Diagnosis and Plan BRANDON OSPINA NP Jul 04, 2024 15:57
[2024-07-04 16:26] VITALS: BP 156/48; PULSE 56; RESP 16; TEMP 97.8; O2SAT 97
--- NOTE | 2024-07-04 16:34 | NUR ---
PT AAOX4, PT STABLE NO DISTRESS VITALS WNL NO C/O PAIN, PT GIVEN INSTRUCTIONS FOR HOME, VERALIZED UNDERSTANDING, PT IV REMOVED CATHETER INTACT, PT HAS THREE RX EMAILD TO HIS PHARMACY WILL START TODAY. PT DRIVEN HOME BY FAMILY.
== END 2024-07-04 16:36 | disposition home or self-care (01) ==
LOC: EDH 13:27
DX: T78.40XA Allergy, unspecified, initial encounter (principal); E11.9 Type 2 diabetes mellitus without complications; J44.9 Chronic obstructive pulmonary disease, unspecified; Z79.890 Hormone replacement therapy; Z79.899 Other long term (current) drug therapy; Z85.46 Personal history of malignant neoplasm of prostate; Z88.0 Allergy status to penicillin; Z90.49 Acquired absence of other specified parts of digestive tract; X58.XXXA Exposure to other specified factors, initial encounter
CPT/HCPCS: 99284; 96374; 96375; J2919; J1200